=== PATIENT | male | born 1960 | race Caucasian/White ===

== ENCOUNTER 2016-08-19 13:21 | Inpatient (IN) | payer MEDICARE, OTHER ==
[~2016-08-19] VITALS: Ht 165.1 cm; Wt 63.7 kg
[2016-08-19 14:00] LABS: Basophils # (auto) 0 uL; Basophils % (auto) 0.1 % (0.0-2.0); DEFINITIVE VIEW TRANSMISSION; Eosinophils # (auto) 0 uL; Eosinophils % (auto) 0.1 % (0.0-7.0); Hematocrit 48.3 % (41.0-53.0); Hemoglobin 15.6 g/dL (13.5-17.5); Lymphocytes # (auto) 1.7 uL; Lymphocytes % (auto) 12.2 % (10.0-50.0); Mean Corpuscular Hemoglobin 34.2 pg (28.0-32.0); Mean Corpuscular Hgb Conc. 32.2 g/dL (32.0-36.0); Mean Corpuscular Volume 106.3 fL (80.0-100.0); Mean Platelet Volume 6.9 fL (7.4-10.4); Monocytes # (auto) 0.6 uL; Monocytes % (auto) 4.4 % (0.0-12.0); Neutrophils # (auto) 11.3 uL; Neutrophils % (auto) 83.2 % (37.0-80.0); Platelet Count (auto) 377 10^3/uL (140-450); White Blood Cell 13.6 10^3/uL (4.4-10.8)
[2016-08-19 14:26] LABS: Albumin 2.8 g/dL (3.4-5.0); BUN/Creatinine Ratio 11.2; Bilirubin, Total 0.5 mg/dL (0.2-1.0); Calcium 8.9 mg/dL (8.5-10.1); Potassium 3.7 mmol/L (3.5-5.1); Total Protein 7.6 g/dL (6.4-8.2)
[2016-08-19] MEDS ORDERED: SODIUM CHLORIDE 0.9% 1,000 ML IV ONE (15:08)
[2016-08-19] MEDS ORDERED: cefTRIAXone 1GM/50ML D5W 50 ML IV ONE (15:15)
[2016-08-19] MEDS ORDERED: AZITHROMYCIN 500MG/D5W 250ML 250 ML IV ONE ×2 (15:15→16:30)
[2016-08-19] MEDS ORDERED: VANCOMYCIN 1GM/250ML D5W 250 ML IV ONE (15:30)
[2016-08-19] MEDS ORDERED: ACETAMINOPHEN 500 MG TAB PO PRN (15:30)
[2016-08-19] MEDS ORDERED: VANCOMYCIN PER PHARMACY 0 MG IV SCH (15:30)
[2016-08-19] MEDS ORDERED: TEMAZEPAM 15 MG CAP PO PRN (15:30)
[2016-08-19] MEDS ORDERED: DEXTROSE (50%) 50ML SYRG IV PRN (15:30)
[2016-08-19] MEDS ORDERED: MORPHINE SULF INJ 2 MG/ML SYRINGE 1ML IV PRN ×2 (15:30)
[2016-08-19] MEDS ORDERED: LACTULOSE 20Gm/30ML SOLN PO PRN (15:30)
[2016-08-19] MEDS ORDERED: PROMETHAZINE HCL 25 MG/ML 1ML IV PRN (15:30)
[2016-08-19] MEDS ORDERED: OSELTAMIVIR 75 MG CAP PO ONE (15:30)
[2016-08-19] MEDS ORDERED: NITROGLYCERIN 0.4 MG SL TAB SL PRN (15:30)
[2016-08-19] MEDS ORDERED: LORazepam 0.5 MG TAB PO PRN (15:30)
[2016-08-19] MEDS ORDERED: ALBUTEROL SULF 2.5 MG/0.5ML(0.5%) NEB SOLN NEB PRN (15:30)
[2016-08-19] MEDS ORDERED: HYDROcodone-ACET 5/325MG TAB PO PRN (15:30)
[2016-08-19] MEDS ORDERED: PIPERACILLIN-TAZOB 3.375GM 100 ML IV ONE (15:42)
[2016-08-19] MEDS: SODIUM CHLORIDE 0.9% 1,000 ML IV SCH (15:45)
[2016-08-19] MEDS ORDERED: ENOXAPARIN SOD 40 MG/0.4 ML SYRINGE SC SCH (16:00)
[2016-08-19] MEDS: ACCU-CHEK COMFORT CURVE STRIP VI SCH ×2 (18:01→22:13)
[2016-08-19] MEDS: ALBUTEROL SULF 2.5 MG/0.5ML(0.5%) NEB SOLN NEB SCH ×2 (18:12→23:54)
[2016-08-19] MEDS: InsuLIN REG 1unit/0.01ml Soln (100units/ml) SC SCH ×2 (18:49→22:18)
[2016-08-19 19:45] VITALS: BP 114/66
[2016-08-19 19:46] VITALS: BP 114/66
[2016-08-19 19:53] VITALS: BP 118/72
[2016-08-19] MEDS ORDERED: SIMV-13 PO (20:12)
[2016-08-19] MEDS ORDERED: LEVO112T35 PO (20:13)
[2016-08-19] MEDS ORDERED: OSELTAMIVIR 75 MG CAP PO SCH (22:00)
[2016-08-19] MEDS: PIPERACILLIN-TAZOB 3.375GM 100 ML IV SCH (23:33)
[2016-08-20] MEDS ORDERED: VANCOMYCIN 1GM/250ML D5W 250 ML IV ONE (03:53)
[2016-08-20] MEDS: VANCOMYCIN 750 MG in D5W 5% 250 ML IV SCH ×2 (04:37→17:01)
[2016-08-20] MEDS: SODIUM CHLORIDE 0.9% 1,000 ML IV SCH ×2 (04:37→18:04)
[2016-08-20 05:23] VITALS: BP 101/52
[2016-08-20 05:58] LABS: Basophils # (auto) 0 uL; Basophils % (auto) 0.3 % (0.0-2.0); DEFINITIVE VIEW TRANSMISSION; Eosinophils # (auto) 0 uL; Eosinophils % (auto) 0.1 % (0.0-7.0); Hematocrit 40.9 % (41.0-53.0); Hemoglobin 13.2 g/dL (13.5-17.5); Lymphocytes # (auto) 1.5 uL; Lymphocytes % (auto) 16.6 % (10.0-50.0); Mean Corpuscular Hemoglobin 34.3 pg (28.0-32.0); Mean Corpuscular Hgb Conc. 32.4 g/dL (32.0-36.0); Mean Corpuscular Volume 105.9 fL (80.0-100.0); Mean Platelet Volume 7.3 fL (7.4-10.4); Monocytes # (auto) 0.6 uL; Monocytes % (auto) 6.3 % (0.0-12.0); Neutrophils # (auto) 6.8 uL; Neutrophils % (auto) 76.7 % (37.0-80.0); Platelet Count (auto) 312 10^3/uL (140-450); Red Cell Distribution Width 16.1 % (11.6-16.0); White Blood Cell 8.9 10^3/uL (4.4-10.8)
[2016-08-20] MEDS: ALBUTEROL SULF 2.5 MG/0.5ML(0.5%) NEB SOLN NEB SCH ×3 (06:00→18:18)
[2016-08-20] MEDS: PIPERACILLIN-TAZOB 3.375GM 100 ML IV SCH (06:22)
[2016-08-20] MEDS: ACCU-CHEK COMFORT CURVE STRIP VI SCH ×4 (06:29→21:49)
[2016-08-20] MEDS: InsuLIN REG 1unit/0.01ml Soln (100units/ml) SC SCH ×4 (06:35→21:49)
[2016-08-20 09:10] VITALS: BP 104/55
[2016-08-20] MEDS: AZITHROMYCIN 500MG/D5W 250ML 250 ML IV SCH (09:20)
[2016-08-20] MEDS ORDERED: LEVOTHYROXINE SODIUM 88 MCG TAB PO ONE (11:30)
[2016-08-20] MEDS: cefTRIAXone 1GM/50ML D5W 50 ML IV SCH (11:40)
[2016-08-20 13:00] VITALS: BP 98/52
[2016-08-20 17:00] VITALS: BP 89/58
[2016-08-20 22:00] VITALS: BP 101/57
[2016-08-21 05:03] LABS: Basophils # (auto) 0 uL; Basophils % (auto) 0.9 % (0.0-2.0); DEFINITIVE VIEW TRANSMISSION; Eosinophils # (auto) 0 uL; Eosinophils % (auto) 0.7 % (0.0-7.0); Hematocrit 40.6 % (41.0-53.0); Hemoglobin 12.8 g/dL (13.5-17.5); Lymphocytes # (auto) 1.6 uL; Lymphocytes % (auto) 30.6 % (10.0-50.0); Mean Corpuscular Hemoglobin 33.5 pg (28.0-32.0); Mean Corpuscular Hgb Conc. 31.5 g/dL (32.0-36.0); Mean Corpuscular Volume 106.2 fL (80.0-100.0); Mean Platelet Volume 7.1 fL (7.4-10.4); Monocytes # (auto) 0.5 uL; Neutrophils # (auto) 3.3 uL; Neutrophils % (auto) 58.8 % (37.0-80.0); Platelet Count (auto) 268 10^3/uL (140-450); Red Cell Distribution Width 14.6 % (11.6-16.0); White Blood Cell 5.4 10^3/uL (4.4-10.8)
[2016-08-21 05:17] LABS: BUN/Creatinine Ratio 7.4; Calcium 7.9 mg/dL (8.5-10.1); Potassium 3.9 mmol/L (3.5-5.1)
[2016-08-21 05:36] VITALS: BP 99/57
[2016-08-21] MEDS: VANCOMYCIN 750 MG in D5W 5% 250 ML IV SCH (05:46)
[2016-08-21] MEDS: ACCU-CHEK COMFORT CURVE STRIP VI SCH ×2 (06:39→11:36)
[2016-08-21] MEDS: InsuLIN REG 1unit/0.01ml Soln (100units/ml) SC SCH ×2 (06:47→12:46)
[2016-08-21] MEDS ORDERED: LEVOTHYROXINE SODIUM 88 MCG TAB PO SCH (07:00)
[2016-08-21] MEDS: ALBUTEROL SULF 2.5 MG/0.5ML(0.5%) NEB SOLN NEB SCH ×3 (07:11→11:34)
[2016-08-21] MEDS: SODIUM CHLORIDE 0.9% 1,000 ML IV SCH (07:34)
[2016-08-21 08:25] VITALS: BP 100/57
[2016-08-21] MEDS: cefTRIAXone 1GM/50ML D5W 50 ML IV SCH (08:53)
[2016-08-21] MEDS: AZITHROMYCIN 500MG/D5W 250ML 250 ML IV SCH (10:24)
[2016-08-21 12:23] VITALS: BP 89/61
[2016-08-21 14:07] VITALS: BP 89/61
[2016-08-21] MEDS ORDERED: VANCOMYCIN 1GM/250ML D5W 250 ML IV SCH (17:00)
== END 2016-08-21 15:15 | disposition home or self-care (01) | DRG 177 ==
LOC: ER 13:24 → TELE 13:25 → TELE-CENTR 19:11 → CENTRAL 08-21 10:45
PROVIDERS: ADMIT Internal Medicine; ATTEND Internal Medicine
DX: B37.1 Pulmonary candidiasis (principal); J96.00 Acute respiratory failure, unspecified whether with hypoxia or hypercapnia; E44.0 Moderate protein-calorie malnutrition; N17.9 Acute kidney failure, unspecified; E11.9 Type 2 diabetes mellitus without complications; E03.9 Hypothyroidism, unspecified; M10.9 Gout, unspecified; Q90.9 Down syndrome, unspecified; Z80.0 Family history of malignant neoplasm of digestive organs; Z80.1 Family history of malignant neoplasm of trachea, bronchus and lung; Z82.49 Family history of ischemic heart disease and other diseases of the circulatory system; Z83.3 Family history of diabetes mellitus; Z68.23 Body mass index [BMI] 23.0-23.9, adult
CPT/HCPCS: 36415; 71020; 80048; 80053; 80202; 82565; 82962; 83036; 84484; 85025; 85049; 87040; 87070; 87205; 87400; 94640; 96361; 96365; 96366; 96372; J0696; J1815; J2543; J7060

== ENCOUNTER 2018-06-16 16:10 | Inpatient (IN) | payer MEDICARE ==
[~2018-06-16] VITALS: Ht 160 cm; Wt 62.4 kg
[~2018-06-16 16:10] MED LIST: LEVO112T35 PO; SIMV-13 PO
[2018-06-16] MEDS ORDERED: IBUPROFEN 600 MG TAB PO ONE (16:30)
[2018-06-16] MEDS ORDERED: PIPERACILLIN-TAZOB 3.375GM 100 ML IV ONE (16:45)
[2018-06-16 17:15] LABS: Basophils # (auto) 0 uL; Basophils % (auto) 0.2 % (0.0-2.0); Eosinophils # (auto) 0 uL; Hemoglobin 16.2 g/dL (13.5-17.5); Lymphocytes # (auto) 0.7 uL; Monocytes # (auto) 0.4 uL; Monocytes % (auto) 4.7 % (0.0-12.0); Neutrophils # (auto) 6.7 uL; White Blood Cell 7.8 10^3/uL (4.4-10.8)
[2018-06-16 17:18] LABS: Hematocrit 47.1 % (41.0-53.0); Lymphocytes % (auto) 8.8 % (10.0-50.0); Mean Corpuscular Hemoglobin 36.4 pg (28.0-32.0); Mean Corpuscular Hgb Conc. 34.3 g/dL (32.0-36.0); Mean Corpuscular Volume 106.4 fL (80.0-100.0); Neutrophils % (auto) 86.3 % (37.0-80.0); Platelet Count (auto) 133 10^3/uL (140-450); Red Blood Cells 4.43 10^6/uL (4.5-5.90); Red Cell Distribution Width 14.5 % (11.8-14.3)
[2018-06-16 17:33] LABS: BUN/Creatinine Ratio 12.4; Potassium 3.9 mmol/L (3.5-5.1)
[2018-06-16 17:36] LABS: Bilirubin, Total 0.4 mg/dL (0.2-1.0); Total Protein 7.7 g/dL (6.4-8.2)
[2018-06-16] MEDS ORDERED: ACETAMINOPHEN 500 MG TAB PO PRN (18:15)
[2018-06-16] MEDS ORDERED: MORPHINE SULFATE 4 MG/ML SYR/VIAL IV PRN ×2 (18:15)
[2018-06-16] MEDS ORDERED: NITROGLYCERIN 0.4 MG SL TAB SL PRN (18:15)
[2018-06-16] MEDS ORDERED: PROMETHAZINE HCL 25 MG/ML 1ML IV PRN (18:15)
[2018-06-16] MEDS ORDERED: ALBUTEROL SULF 2.5 MG/0.5ML(0.5%) NEB SOLN NEB PRN (18:15)
[2018-06-16] MEDS ORDERED: AZITHROMYCIN 500MG/ 250ML 250 ML IV ONE (18:15)
[2018-06-16] MEDS ORDERED: LORazepam 0.5 MG TAB PO PRN (18:15)
[2018-06-16] MEDS ORDERED: DEXTROSE (50%) 50ML SYRG IV PRN (18:15)
[2018-06-16] MEDS ORDERED: HYDROcodone-ACET 5/325MG TAB PO PRN (18:15)
[2018-06-16] MEDS ORDERED: TEMAZEPAM 15 MG CAP PO PRN (18:15)
[2018-06-16] MEDS ORDERED: VANCOMYCIN PER PHARMACY 0 MG IV SCH (18:15)
[2018-06-16] MEDS ORDERED: cefTRIAXone 1GM/50ML D5W 50 ML IV ONE (18:15)
[2018-06-16] MEDS: SODIUM CHLORIDE 0.9% 1,000 ML IV SCH ×4 (18:31→21:42)
[2018-06-16] MEDS ORDERED: OSELTAMIVIR 30 MG CAP PO ONE (18:45)
[2018-06-16 18:54] VITALS: BP 113/70
[2018-06-16] MEDS ORDERED: VANCOMYCIN 1GM/250ML 250 ML IV ONE (21:00)
[2018-06-16] MEDS: ATORVASTATIN 20 MG TAB PO SCH (21:08)
[2018-06-16 22:00] VITALS: BP 93/52
[2018-06-16] MEDS: ACCU-CHEK COMFORT CURVE STRIP VI SCH (22:00)
[2018-06-16] MEDS: InsuLIN REG 1unit/0.01ml Soln (100units/ml) SC SCH (22:00)
[2018-06-17] MEDS: ALBUTEROL SULF 2.5 MG/0.5ML(0.5%) NEB SOLN NEB SCH ×5 (02:11→23:56)
[2018-06-17 05:27] LABS: Calcium 7.3 mg/dL (8.5-10.1); Potassium 3.8 mmol/L (3.5-5.1)
[2018-06-17] MEDS: LEVOTHYROXINE SODIUM 112 MCG TAB PO SCH (06:01)
[2018-06-17] MEDS: InsuLIN REG 1unit/0.01ml Soln (100units/ml) SC SCH ×4 (06:02→21:39)
[2018-06-17] MEDS: ACCU-CHEK COMFORT CURVE STRIP VI SCH ×4 (06:02→21:28)
[2018-06-17 06:26] VITALS: BP 103/58
[2018-06-17 09:00] VITALS: BP 92/50
[2018-06-17] MEDS: PANTOPRAZOLE 40 MG TAB PO SCH (09:50)
[2018-06-17] MEDS: cefTRIAXone 1GM/50ML D5W 50 ML IV SCH (09:50)
[2018-06-17] MEDS: ENOXAPARIN SOD 40 MG/0.4 ML SYRINGE SC SCH (09:50)
[2018-06-17] MEDS: AZITHROMYCIN 500MG/ 250ML 250 ML IV SCH (09:53)
[2018-06-17] MEDS ORDERED: OSELTAMIVIR 30 MG CAP PO SCH (10:00)
[2018-06-17 13:00] VITALS: BP 90/55
[2018-06-17 17:23] VITALS: BP 114/70
[2018-06-17] MEDS ORDERED: MAGNESIUM SULFATE 1GM/100ML 100 ML IV ONE (18:00)
[2018-06-17] MEDS: VANCOMYCIN 1GM/250ML 250 ML IV SCH (21:19)
[2018-06-17 21:29] VITALS: BP 106/58
[2018-06-17] MEDS: ATORVASTATIN 20 MG TAB PO SCH (21:39)
[2018-06-18] MEDS: SODIUM CHLORIDE 0.9% 1,000 ML IV SCH ×3 (02:59→21:44)
[2018-06-18 04:40] VITALS: BP 94/55
[2018-06-18] MEDS: ALBUTEROL SULF 2.5 MG/0.5ML(0.5%) NEB SOLN NEB SCH ×4 (05:55→23:42)
[2018-06-18] MEDS: LEVOTHYROXINE SODIUM 112 MCG TAB PO SCH (06:42)
[2018-06-18] MEDS: ACCU-CHEK COMFORT CURVE STRIP VI SCH ×4 (06:43→22:20)
[2018-06-18] MEDS: InsuLIN REG 1unit/0.01ml Soln (100units/ml) SC SCH ×4 (06:43→22:00)
[2018-06-18 09:00] VITALS: BP 97/55
[2018-06-18] MEDS: ENOXAPARIN SOD 40 MG/0.4 ML SYRINGE SC SCH (09:51)
[2018-06-18] MEDS: cefTRIAXone 1GM/50ML D5W 50 ML IV SCH (09:51)
[2018-06-18] MEDS: PANTOPRAZOLE 40 MG TAB PO SCH (09:51)
[2018-06-18] MEDS: AZITHROMYCIN 500MG/ 250ML 250 ML IV SCH (12:21)
[2018-06-18 12:44] VITALS: BP 102/60
[2018-06-18 16:00] VITALS: BP 115/72
[2018-06-18] MEDS: ATORVASTATIN 20 MG TAB PO SCH (21:45)
[2018-06-18] MEDS: VANCOMYCIN 1GM/250ML 250 ML IV SCH (21:45)
[2018-06-18 21:50] VITALS: BP 118/66
[2018-06-19] MEDS: SODIUM CHLORIDE 0.9% 1,000 ML IV SCH ×2 (02:25→10:14)
[2018-06-19 04:36] VITALS: BP 129/76
[2018-06-19 06:30] LABS: Basophils # (auto) 0 uL; Eosinophils # (auto) 0 uL; Lymphocytes # (auto) 1.1 uL; Monocytes # (auto) 0.3 uL; White Blood Cell 3.1 10^3/uL (4.4-10.8)
[2018-06-19 06:33] LABS: Basophils % (auto) 0.4 % (0.0-2.0); Eosinophils % (auto) 0.2 % (0.0-7.0); Hematocrit 40.6 % (41.0-53.0); Hemoglobin 13.7 g/dL (13.5-17.5); Lymphocytes % (auto) 33.8 % (10.0-50.0); Mean Corpuscular Hemoglobin 36.1 pg (28.0-32.0); Mean Corpuscular Hgb Conc. 33.7 g/dL (32.0-36.0); Mean Corpuscular Volume 107.2 fL (80.0-100.0); Monocytes % (auto) 8.8 % (0.0-12.0); Neutrophils # (auto) 1.8 uL; Neutrophils % (auto) 56.8 % (37.0-80.0); Nucleated Red Blood Cells % 0.3 %; Platelet Count (auto) 117 10^3/uL (140-450); Red Blood Cells 3.79 10^6/uL (4.5-5.90); Red Cell Distribution Width 14.6 % (11.8-14.3)
[2018-06-19] MEDS: ALBUTEROL SULF 2.5 MG/0.5ML(0.5%) NEB SOLN NEB SCH ×2 (06:34→11:25)
[2018-06-19 06:39] LABS: Potassium 3.9 mmol/L (3.5-5.1)
[2018-06-19 06:52] LABS: BUN/Creatinine Ratio 8.8; Calcium 7.6 mg/dL (8.5-10.1)
[2018-06-19] MEDS: LEVOTHYROXINE SODIUM 112 MCG TAB PO SCH (06:57)
[2018-06-19] MEDS: ACCU-CHEK COMFORT CURVE STRIP VI SCH ×2 (06:57→11:30)
[2018-06-19] MEDS: InsuLIN REG 1unit/0.01ml Soln (100units/ml) SC SCH ×2 (06:57→11:30)
[2018-06-19 09:00] VITALS: BP 130/71
[2018-06-19] MEDS: cefTRIAXone 1GM/50ML D5W 50 ML IV SCH (09:31)
[2018-06-19] MEDS: PANTOPRAZOLE 40 MG TAB PO SCH (09:31)
[2018-06-19] MEDS: ENOXAPARIN SOD 40 MG/0.4 ML SYRINGE SC SCH (09:31)
[2018-06-19] MEDS: AZITHROMYCIN 500MG/ 250ML 250 ML IV SCH (10:58)
[2018-06-19 13:00] VITALS: BP 142/78
== END 2018-06-19 13:08 | disposition home or self-care (01) | DRG 871 ==
LOC: ER 16:17 → TELE 16:18 → TELE-CENTR 20:11
PROVIDERS: ADMIT Internal Medicine; ATTEND Family Medicine
DX: A41.9 Sepsis, unspecified organism (principal); J18.9 Pneumonia, unspecified organism; E11.9 Type 2 diabetes mellitus without complications; M10.9 Gout, unspecified; E05.00 Thyrotoxicosis with diffuse goiter without thyrotoxic crisis or storm; E86.0 Dehydration; D69.6 Thrombocytopenia, unspecified; E78.00 Pure hypercholesterolemia, unspecified; Z80.0 Family history of malignant neoplasm of digestive organs; Z82.49 Family history of ischemic heart disease and other diseases of the circulatory system; Z80.1 Family history of malignant neoplasm of trachea, bronchus and lung; Z83.3 Family history of diabetes mellitus; Z92.3 Personal history of irradiation; Q90.9 Down syndrome, unspecified
CPT/HCPCS: 36415; 71045; 71046; 80048; 80053; 82962; 83036; 83605; 85025; 85652; 87040; 87070; 87205; 87804; 93306; 94640; 96365; 96375; A6257; G0378; G9035; J0696; J1815; J2543

== ENCOUNTER 2018-08-04 07:46 | Emergency (ER) | payer MEDICARE ==
[~2018-08-04] VITALS: Ht 160 cm; Wt 58.5 kg
[2018-08-04 07:59] VITALS: BP 141/59
[2018-08-04] MEDS ORDERED: methylPREDNISolone SOD SUCC 125 MG/2 ML VL IM ONE (09:00)
[2018-08-04] MEDS ORDERED: cefTRIAXone SOD 1,000 MG VL IM ONE (09:00)
[2018-08-04] MEDS ORDERED: LEVOFLOXACIN 500 MG TAB PO ONE (09:00)
[2018-08-04 09:02] LABS: Basophils # (auto) 0 uL; Eosinophils # (auto) 0 uL; Lymphocytes # (auto) 0.8 uL
[2018-08-04 09:03] LABS: Basophils % (auto) 0.2 % (0.0-2.0); Hematocrit 47.6 % (41.0-53.0); Hemoglobin 15.6 g/dL (13.5-17.5); Lymphocytes % (auto) 7.1 % (10.0-50.0); Mean Corpuscular Hemoglobin 35.1 pg (28.0-32.0); Mean Corpuscular Hgb Conc. 32.8 g/dL (32.0-36.0); Monocytes # (auto) 0.5 uL; Neutrophils % (auto) 88.7 % (37.0-80.0); Platelet Count (auto) 174 10^3/uL (140-450); Red Blood Cells 4.45 10^6/uL (4.5-5.90); Red Cell Distribution Width 16.1 % (11.8-14.3); White Blood Cell 11.3 10^3/uL (4.4-10.8)
[2018-08-04 09:23] LABS: Albumin 2.7 g/dL (3.4-5.0); BUN/Creatinine Ratio 9.5; Calcium 8.1 mg/dL (8.5-10.1)
[2018-08-04 09:27] LABS: Total Protein 7.6 g/dL (6.4-8.2)
== END 2018-08-04 09:43 | disposition home or self-care (01) ==
LOC: ER 07:46
DX: J18.9 Pneumonia, unspecified organism (principal); E11.9 Type 2 diabetes mellitus without complications
CPT/HCPCS: 36415; 71046; 80053; 85025; 87040; 96372; 99284; J0696; J2930

== ENCOUNTER 2021-05-31 07:32 | Emergency (ER) | payer MEDICARE ==
[~2021-05-31] VITALS: Ht 162.6 cm; Wt 49.9 kg
[~2021-05-31 07:32] MED LIST changes: +ALBUAER3 IN; +ASCO10003 PO; +CHOL1CAP47 PO; +DEX4T PO; +ERY05OO OP; +LEV112T PO; -LEVO112T35 PO; +PANT40TA2 PO; +POLYSOL15 OP; +PRED1SUS4 OP; -SIMV-13 PO; +ZINC220T6 PO
[2021-05-31 08:05] VITALS: BP 97/55
[2021-05-31 08:44] LABS: Basophils # (auto) 0.1 10 ^3/uL (0-0.2); Basophils % (auto) 0.6 % (0.0-2.0); Eosinophils # (auto) 0 10 ^3/uL (0-0.8); Eosinophils % (auto) 0.3 % (0.0-7.0); Mean Corpuscular Volume 106.1 fL (80.0-100.0); Neutrophils # (auto) 8.1 10 ^3/uL (1.6-8.6)
[2021-05-31 08:45] LABS: Hematocrit 40.2 % (41.0-53.0); Hemoglobin 13.5 g/dL (13.5-17.5); Lymphocytes # (auto) 1.9 10 ^3/uL (0.4-5.4); Mean Corpuscular Hemoglobin 35.6 pg (28.0-32.0); Mean Corpuscular Hgb Conc. 33.5 g/dL (32.0-36.0); Monocytes # (auto) 0.7 10 ^3/uL (0-1.3); Monocytes % (auto) 6.2 % (0.0-12.0); Neutrophils % (auto) 74.9 % (37.0-80.0); Red Blood Cells 3.79 10^6/uL (4.5-5.90); White Blood Cell 10.7 10^3/uL (4.4-10.8)
[2021-05-31 09:06] LABS: Albumin 2.1 g/dL (3.4-5.0); Calcium 8.5 mg/dL (8.5-10.1); Potassium 4.1 mmol/L (3.5-5.1)
[2021-05-31 09:09] LABS: BUN/Creatinine Ratio 9.9; Bilirubin, Total 0.6 mg/dL (0.2-1.0); Total Protein 7.6 g/dL (6.4-8.2)
== END 2021-05-31 10:02 | disposition home or self-care (01) ==
LOC: ER 07:32
DX: J18.9 Pneumonia, unspecified organism (principal); E11.9 Type 2 diabetes mellitus without complications; Z20.822 Contact with and (suspected) exposure to COVID-19
CPT/HCPCS: 36415; 71045; 80053; 85025; 87426

== ENCOUNTER 2021-07-11 06:35 | Emergency (ER) | payer MEDICARE ==
[~2021-07-11] VITALS: Ht 165.1 cm; Wt 49.9 kg
[2021-07-11] MEDS ORDERED: AZITHROMYCIN 500MG/ 250ML 250 ML IV ONE (07:30)
[2021-07-11] MEDS ORDERED: cefTRIAXone 1GM/50ML D5W 50 ML IV ONE (07:30)
[2021-07-11] MEDS ORDERED: SODIUM CHLORIDE 0.9% 1,000 ML IV ONE (07:45)
[2021-07-11] MEDS ORDERED: SODIUM CHLORIDE 0.9% 500 ML IV ONE (07:45)
[2021-07-11 08:22] LABS: Basophils # (auto) 0 10 ^3/uL (0-0.2); Eosinophils # (auto) 0 10 ^3/uL (0-0.8)
[2021-07-11 08:28] LABS: Basophils % (auto) 0.3 % (0.0-2.0); Eosinophils % (auto) 0.1 % (0.0-7.0); Hematocrit 44.2 % (41.0-53.0); Lymphocytes # (auto) 1.5 10 ^3/uL (0.4-5.4); Mean Corpuscular Hemoglobin 36.5 pg (28.0-32.0); Mean Corpuscular Volume 107.3 fL (80.0-100.0); Monocytes # (auto) 0.7 10 ^3/uL (0-1.3); Monocytes % (auto) 7.1 % (0.0-12.0); Neutrophils # (auto) 7.3 10 ^3/uL (1.6-8.6); Neutrophils % (auto) 76.5 % (37.0-80.0); Nucleated Red Blood Cells % 0.1 %; Red Blood Cells 4.12 10^6/uL (4.5-5.90); Red Cell Distribution Width 15.7 % (11.8-14.3); White Blood Cell 9.6 10^3/uL (4.4-10.8)
[2021-07-11 08:34] LABS: Albumin 2.8 g/dL (3.4-5.0); Calcium 8.7 mg/dL (8.5-10.1)
[2021-07-11 08:42] LABS: BUN/Creatinine Ratio 11.1; Bilirubin, Total 0.7 mg/dL (0.2-1.0); CRP High Sensitivity 16.5 mg/dL (< 0.3); Total Protein 8.4 g/dL (6.4-8.2)
[2021-07-11] MEDS ORDERED: AMOXICILLIN/CLAVUL 875 MG TAB PO SCH (10:00)
[2021-07-11 13:35] VITALS: BP 115/52
== END 2021-07-11 13:43 | disposition home or self-care (01) ==
LOC: ER 06:35
DX: J18.9 Pneumonia, unspecified organism (principal); Z20.822 Contact with and (suspected) exposure to COVID-19
CPT/HCPCS: 36415; 71046; 80053; 82728; 83605; 83615; 84443; 85025; 86141; 87040; 87426; 96365; 96366; 96367; 99285; J0456; J0696; J7030

== ENCOUNTER 2021-08-09 06:10 | Inpatient (IN) | payer MEDICARE ==
[~2021-08-09] VITALS: Ht 165.1 cm; Wt 51.8 kg
[2021-08-09] MEDS ORDERED: levoFLOXacin 500MG 100 ML IV ONE (07:00)
[2021-08-09 07:35] LABS: Basophils # (auto) 0 10 ^3/uL (0-0.2); Basophils % (auto) 0.2 % (0.0-2.0); Eosinophils # (auto) 0 10 ^3/uL (0-0.8); Monocytes # (auto) 0.5 10 ^3/uL (0-1.3)
[2021-08-09 07:40] LABS: Hematocrit 43.2 % (41.0-53.0); Hemoglobin 14.5 g/dL (13.5-17.5); Lymphocytes # (auto) 1.2 10 ^3/uL (0.4-5.4); Lymphocytes % (auto) 9.1 % (10.0-50.0); Mean Corpuscular Hemoglobin 35.1 pg (28.0-32.0); Mean Corpuscular Hgb Conc. 33.5 g/dL (32.0-36.0); Mean Corpuscular Volume 104.8 fL (80.0-100.0); Monocytes % (auto) 3.8 % (0.0-12.0); Neutrophils # (auto) 11.4 10 ^3/uL (1.6-8.6); Neutrophils % (auto) 86.9 % (37.0-80.0); Red Blood Cells 4.13 10^6/uL (4.5-5.90); Red Cell Distribution Width 16.2 % (11.8-14.3); White Blood Cell 13.1 10^3/uL (4.4-10.8)
[2021-08-09 07:43] LABS: Albumin 2.6 g/dL (3.4-5.0); Calcium 8.5 mg/dL (8.5-10.1); Potassium 4.3 mmol/L (3.5-5.1)
[2021-08-09 07:52] LABS: BUN/Creatinine Ratio 10.8; Bilirubin, Total 0.6 mg/dL (0.2-1.0); CRP High Sensitivity 17.7 mg/dL (< 0.3)
[2021-08-09] MEDS ORDERED: NITROGLYCERIN 0.4 MG SL TAB SL PRN (10:00)
[2021-08-09] MEDS ORDERED: MORPHINE SULFATE INJECTION 2 MG/ML SYRG IV PRN (10:00)
[2021-08-09] MEDS ORDERED: traMADol HCL 50 MG TAB PO PRN (10:30)
[2021-08-09] MEDS ORDERED: DEXTROSE (50%) 50ML SYRG IV PRN (10:30)
[2021-08-09] MEDS ORDERED: ALBUTEROL SULF HFA 90MCG INH 200DOSE IN PRN (10:30)
[2021-08-09] MEDS ORDERED: IOHEXOL 350 MG/ML 100ML IJ ONE (10:31)
[2021-08-09] MEDS: InsuLIN REG 1unit/0.01ml Soln (100units/ml) SC SCH ×3 (11:30→22:28)
[2021-08-09] MEDS: ACCU-CHEK COMFORT CURVE STRIP VI SCH ×3 (11:31→22:19)
[2021-08-09] MEDS: SODIUM CHLORIDE 0.9% 1,000 ML IV SCH (11:32)
[2021-08-09 22:00] VITALS: BP 120/55
[2021-08-09] MEDS ORDERED: BUDESONIDE (INHALATION) 180 MCG IH IN SCH (22:00)
[2021-08-09] MEDS: ACETAMINOPHEN 500 MG TAB PO PRN (22:18)
[2021-08-09 22:30] VITALS: BP 120/55
[2021-08-09] MEDS ORDERED: LEVO88TA4 PO (22:58)
[2021-08-10] MEDS: SODIUM CHLORIDE 0.9% 1,000 ML IV SCH ×2 (01:54→15:47)
[2021-08-10 05:00] VITALS: BP 86/50
[2021-08-10] MEDS: InsuLIN REG 1unit/0.01ml Soln (100units/ml) SC SCH ×4 (06:06→20:40)
[2021-08-10] MEDS: ACCU-CHEK COMFORT CURVE STRIP VI SCH ×4 (06:07→20:38)
[2021-08-10 06:08] VITALS: BP 77/44
[2021-08-10 06:55] LABS: Basophils # (auto) 0 10 ^3/uL (0-0.2); Basophils % (auto) 0.3 % (0.0-2.0); Eosinophils # (auto) 0 10 ^3/uL (0-0.8); Hemoglobin 12.3 g/dL (13.5-17.5); Lymphocytes # (auto) 1.1 10 ^3/uL (0.4-5.4); Lymphocytes % (auto) 7.1 % (10.0-50.0)
[2021-08-10 06:56] LABS: Hematocrit 36.9 % (41.0-53.0); Mean Corpuscular Hemoglobin 34.9 pg (28.0-32.0); Mean Corpuscular Hgb Conc. 33.2 g/dL (32.0-36.0); Monocytes # (auto) 0.8 10 ^3/uL (0-1.3); Monocytes % (auto) 4.7 % (0.0-12.0); Neutrophils # (auto) 14.1 10 ^3/uL (1.6-8.6); Neutrophils % (auto) 87.9 % (37.0-80.0); Nucleated Red Blood Cells % 0.1 %; Red Blood Cells 3.51 10^6/uL (4.5-5.90); Red Cell Distribution Width 16.4 % (11.8-14.3)
[2021-08-10 07:25] LABS: Albumin 2.1 g/dL (3.4-5.0); Calcium 7.8 mg/dL (8.5-10.1); Potassium 4.1 mmol/L (3.5-5.1)
[2021-08-10 07:28] LABS: BUN/Creatinine Ratio 12.2; Bilirubin, Total 0.8 mg/dL (0.2-1.0); Total Protein 6.2 g/dL (6.4-8.2)
[2021-08-10 09:04] VITALS: BP 74/45
[2021-08-10] MEDS: cefTRIAXone 1GM/50ML D5W 50 ML IV SCH (09:09)
[2021-08-10] MEDS: AZITHROMYCIN 500MG/ 250ML 250 ML IV SCH (09:54)
[2021-08-10] MEDS ORDERED: ENOXAPARIN SOD 40 MG/0.4 ML SYRINGE SC SCH (10:00)
[2021-08-10] MEDS ORDERED: ZINC SULFATE 220mg CAP or TAB PO SCH (10:00)
[2021-08-10] MEDS ORDERED: CHOLECALCIFEROL (VITD3) 2,000 UNIT CAP/TAB PO SCH (10:00)
[2021-08-10] MEDS ORDERED: DexAMETHasone SOD PHOS 10MG/1ML VIAL INJ IV SCH (10:00)
[2021-08-10] MEDS ORDERED: ASCORBIC ACID 1,000 MG TAB PO SCH (10:00)
[2021-08-10 13:00] VITALS: BP 77/49
[2021-08-10 16:49] VITALS: BP 98/47
[2021-08-10 22:00] VITALS: BP 84/45
[2021-08-11] MEDS: SODIUM CHLORIDE 0.9% 1,000 ML IV SCH ×3 (02:33→18:24)
[2021-08-11 05:00] VITALS: BP 85/41
[2021-08-11 05:00] LABS: Basophils # (auto) 0 10 ^3/uL (0-0.2); Eosinophils # (auto) 0 10 ^3/uL (0-0.8); Monocytes # (auto) 0.5 10 ^3/uL (0-1.3); Neutrophils # (auto) 9.7 10 ^3/uL (1.6-8.6)
[2021-08-11 05:03] LABS: Basophils % (auto) 0.2 % (0.0-2.0); Eosinophils % (auto) 0.2 % (0.0-7.0); Hematocrit 33.2 % (41.0-53.0); Hemoglobin 11.5 g/dL (13.5-17.5); Lymphocytes # (auto) 1.2 10 ^3/uL (0.4-5.4); Lymphocytes % (auto) 10.6 % (10.0-50.0); Mean Corpuscular Hemoglobin 35.9 pg (28.0-32.0); Mean Corpuscular Hgb Conc. 34.5 g/dL (32.0-36.0); Monocytes % (auto) 4.5 % (0.0-12.0); Neutrophils % (auto) 84.5 % (37.0-80.0); Red Blood Cells 3.19 10^6/uL (4.5-5.90); White Blood Cell 11.5 10^3/uL (4.4-10.8)
[2021-08-11 05:20] LABS: BUN/Creatinine Ratio 18.1; Calcium 8.1 mg/dL (8.5-10.1)
[2021-08-11 06:23] VITALS: BP 90/46
[2021-08-11] MEDS: InsuLIN REG 1unit/0.01ml Soln (100units/ml) SC SCH ×4 (06:51→21:03)
[2021-08-11] MEDS: ACCU-CHEK COMFORT CURVE STRIP VI SCH ×4 (06:51→21:04)
[2021-08-11] MEDS: cefTRIAXone 1GM/50ML D5W 50 ML IV SCH (08:51)
[2021-08-11 09:09] VITALS: BP 75/51
[2021-08-11] MEDS: AZITHROMYCIN 500MG/ 250ML 250 ML IV SCH (09:47)
[2021-08-11 12:09] VITALS: BP 86/59
[2021-08-11 16:55] VITALS: BP 94/56
[2021-08-11] MEDS: ACETAMINOPHEN 500 MG TAB PO PRN (20:02)
[2021-08-11 22:00] VITALS: BP 99/61
[2021-08-12 05:00] VITALS: BP 91/57
[2021-08-12] MEDS: InsuLIN REG 1unit/0.01ml Soln (100units/ml) SC SCH ×4 (06:20→22:31)
[2021-08-12] MEDS: ACCU-CHEK COMFORT CURVE STRIP VI SCH ×4 (06:20→22:30)
[2021-08-12] MEDS: SODIUM CHLORIDE 0.9% 1,000 ML IV SCH (06:20)
[2021-08-12 09:00] VITALS: BP 98/58
[2021-08-12] MEDS: cefTRIAXone 1GM/50ML D5W 50 ML IV SCH (09:25)
[2021-08-12] MEDS: ACETYLCYSTEINE 10 %(100MG/ML) SOL 4ML NEB SCH ×4 (10:00→22:48)
[2021-08-12] MEDS: AZITHROMYCIN 500MG/ 250ML 250 ML IV SCH (10:08)
[2021-08-12 12:04] VITALS: BP 93/60
[2021-08-12] MEDS ORDERED: ALBUTEROL SULF 2.5 MG/0.5ML(0.5%) NEB SOLN ONE (14:14)
[2021-08-12] MEDS ORDERED: ALBUTEROL SULF 2.5 MG/0.5ML(0.5%) NEB SOLN NEB PRN (14:15)
[2021-08-12 16:47] VITALS: BP 96/64
[2021-08-12] MEDS: ALBUTEROL SULF 2.5 MG/0.5ML(0.5%) NEB SOLN NEB SCH ×2 (18:05→22:48)
[2021-08-12 22:00] VITALS: BP 100/59
[2021-08-13] MEDS: ALBUTEROL SULF 2.5 MG/0.5ML(0.5%) NEB SOLN NEB SCH ×3 (02:32→10:54)
[2021-08-13] MEDS: ACETYLCYSTEINE 10 %(100MG/ML) SOL 4ML NEB SCH ×3 (02:32→10:55)
[2021-08-13 05:00] VITALS: BP 96/58
[2021-08-13] MEDS: ACCU-CHEK COMFORT CURVE STRIP VI SCH ×2 (06:21→11:30)
[2021-08-13] MEDS: InsuLIN REG 1unit/0.01ml Soln (100units/ml) SC SCH ×2 (06:22→11:30)
[2021-08-13 08:01] LABS: Basophils # (auto) 0 10 ^3/uL (0-0.2); Eosinophils # (auto) 0 10 ^3/uL (0-0.8); Eosinophils % (auto) 0.7 % (0.0-7.0); Lymphocytes # (auto) 1.4 10 ^3/uL (0.4-5.4); Monocytes # (auto) 0.4 10 ^3/uL (0-1.3); Neutrophils # (auto) 3.1 10 ^3/uL (1.6-8.6); Nucleated Red Blood Cells % 0.1 %
[2021-08-13 08:05] LABS: Basophils % (auto) 0.7 % (0.0-2.0); Hematocrit 35.3 % (41.0-53.0); Hemoglobin 12.1 g/dL (13.5-17.5); Lymphocytes % (auto) 28.2 % (10.0-50.0); Mean Corpuscular Hemoglobin 35.6 pg (28.0-32.0); Mean Corpuscular Hgb Conc. 34.4 g/dL (32.0-36.0); Mean Corpuscular Volume 103.6 fL (80.0-100.0); Monocytes % (auto) 7.9 % (0.0-12.0); Neutrophils % (auto) 62.5 % (37.0-80.0); Red Blood Cells 3.41 10^6/uL (4.5-5.90); Red Cell Distribution Width 16.2 % (11.8-14.3)
[2021-08-13 08:25] LABS: BUN/Creatinine Ratio 16.2
[2021-08-13 08:29] VITALS: BP 101/61
[2021-08-13] MEDS: cefTRIAXone 1GM/50ML D5W 50 ML IV SCH (08:59)
[2021-08-13] MEDS: AZITHROMYCIN 500MG/ 250ML 250 ML IV SCH (09:00)
[2021-08-13] MEDS ORDERED: AZIT500T66 PO (09:35)
[2021-08-13] MEDS ORDERED: AMOX500T86 PO (09:35)
[2021-08-13 10:06] VITALS: BP 101/61
== END 2021-08-13 11:50 | disposition home or self-care (01) | DRG 871 ==
LOC: ER 06:10 → TELE 09:51 → TELE-CENTR 21:30
PROVIDERS: ADMIT Internal Medicine; ATTEND Internal Medicine Pulmonary Disease
DX: A41.9 Sepsis, unspecified organism (principal); J18.9 Pneumonia, unspecified organism; J96.01 Acute respiratory failure with hypoxia; J44.0 Chronic obstructive pulmonary disease with (acute) lower respiratory infection; J98.09 Other diseases of bronchus, not elsewhere classified; Q90.9 Down syndrome, unspecified; E78.5 Hyperlipidemia, unspecified; I10 Essential (primary) hypertension; M10.9 Gout, unspecified; E11.65 Type 2 diabetes mellitus with hyperglycemia; Z20.822 Contact with and (suspected) exposure to COVID-19; Z82.49 Family history of ischemic heart disease and other diseases of the circulatory system; Z82.5 Family history of asthma and other chronic lower respiratory diseases; Z92.3 Personal history of irradiation; Z80.1 Family history of malignant neoplasm of trachea, bronchus and lung
CPT/HCPCS: 36415; 36600; 71045; 71275; 80048; 80053; 82728; 82805; 82962; 83036; 83605; 83880; 84484; 85025; 85379; 86141; 87040; 87426; 87804; 93005; 94640; G0378; J0696; J1815; J1956

== ENCOUNTER 2021-08-20 07:17 | Inpatient (IN) | payer MEDICARE ==
[~2021-08-20] VITALS: Ht 165.1 cm; Wt 51.0 kg
[~2021-08-20 07:17] MED LIST changes: +AMOX500T86 PO; +AZIT500T66 PO; -DEX4T PO; -LEV112T PO; +LEVO88TA4 PO; -PANT40TA2 PO
[2021-08-20 10:22] LABS: Basophils # (auto) 0.2 10 ^3/uL (0-0.2); Eosinophils # (auto) 0 10 ^3/uL (0-0.8); Hemoglobin 13.4 g/dL (13.5-17.5); Lymphocytes # (auto) 1.2 10 ^3/uL (0.4-5.4); Nucleated Red Blood Cells % 0.1 %
[2021-08-20 10:35] LABS: Basophils % (auto) 4.2 % (0.0-2.0); Hematocrit 39.9 % (41.0-53.0); Lymphocytes % (auto) 21.2 % (10.0-50.0); Mean Corpuscular Hemoglobin 34.8 pg (28.0-32.0); Mean Corpuscular Hgb Conc. 33.6 g/dL (32.0-36.0); Mean Corpuscular Volume 103.4 fL (80.0-100.0); Monocytes # (auto) 0.4 10 ^3/uL (0-1.3); Monocytes % (auto) 6.6 % (0.0-12.0); Neutrophils # (auto) 3.9 10 ^3/uL (1.6-8.6); Red Blood Cells 3.86 10^6/uL (4.5-5.90); Red Cell Distribution Width 16.6 % (11.8-14.3); White Blood Cell 5.8 10^3/uL (4.4-10.8)
[2021-08-20 10:47] LABS: Calcium 8.1 mg/dL (8.5-10.1); Potassium 4.3 mmol/L (3.5-5.1)
[2021-08-20 10:56] LABS: Albumin 2.2 g/dL (3.4-5.0); BUN/Creatinine Ratio 11.2; Bilirubin, Total 0.2 mg/dL (0.2-1.0); Magnesium 3.2 mg/dL (1.6-2.6); Total Protein 7.3 g/dL (6.4-8.2)
[2021-08-20] MEDS ORDERED: cefTRIAXone 1GM/50ML D5W 50 ML IV ONE (12:15)
[2021-08-20] MEDS ORDERED: AZITHROMYCIN 500MG/ 250ML 250 ML IV ONE (12:15)
[2021-08-20] MEDS ORDERED: NITROGLYCERIN 0.4 MG SL TAB SL PRN ×2 (15:00→17:00)
[2021-08-20] MEDS ORDERED: MORPHINE SULFATE INJECTION 2 MG/ML SYRG IV PRN ×3 (15:00→17:00)
[2021-08-20] MEDS ORDERED: DEXTROSE (50%) 50ML SYRG IV PRN (16:45)
[2021-08-20] MEDS ORDERED: IPRATROPIUM BROM 0.5 MG/2.5ML INH SOL NEB ONE (16:45)
[2021-08-20] MEDS ORDERED: VANCOMYCIN PER PHARMACY 0 MG IV SCH (16:45)
[2021-08-20] MEDS ORDERED: PIPERACILLIN-TAZOB 3.375GM 100 ML IV ONE (16:45)
[2021-08-20] MEDS ORDERED: ACETAMINOPHEN 325 MG TAB PO PRN (17:00)
[2021-08-20] MEDS ORDERED: LORazepam 0.5 MG TAB PO PRN (17:00)
[2021-08-20] MEDS ORDERED: HYDROcodone-ACET 5/325MG TAB PO PRN (17:00)
[2021-08-20] MEDS ORDERED: ALUM & MAG HYDROX-SIMETH LIQ(MAALOX) 30 ML PO PRN (17:00)
[2021-08-20] MEDS: InsuLIN REG 1unit/0.01ml Soln (100units/ml) SC SCH ×2 (17:00→21:52)
[2021-08-20] MEDS ORDERED: ONDANSETRON HCL 4 MG/2 ML VIAL IV PRN (17:00)
[2021-08-20] MEDS: ACCU-CHEK COMFORT CURVE STRIP VI SCH ×2 (17:42→21:52)
[2021-08-20] MEDS: SODIUM CHLORIDE 0.9% 1,000 ML IV SCH (17:54)
[2021-08-20 19:15] LABS: Urine Bacteria NONE SEEN /hpf (None Seen); Urine Blood Negative /uL (Negative); Urine Mucus FEW (None Seen); Urine Specific Gravity 1.026 (1.001-1.035); Urine WBC <1 /hpf (0 - 3)
[2021-08-20 19:29] LABS: Amphetamine Screen, Urine NEGATIVE (NEGATIVE); Barbiturate Scree,Urine NEGATIVE (NEGATIVE); Benzodiazephine Screen, Urine NEGATIVE (NEGATIVE); Cannabinoid Screen, Urine NEGATIVE (NEGATIVE); Cocaine Screen, Urine NEGATIVE (NEGATIVE); Opiate Scree,Urine NEGATIVE (NEGATIVE); Phencyclidine Screen, Urine NEGATIVE (NEGATIVE)
[2021-08-20] MEDS: ACETYLCYSTEINE 20%(200MG/ML) SOL 4ML NEB SCH (19:29)
[2021-08-20] MEDS: ALBUTEROL SULF 2.5 MG/0.5ML(0.5%) NEB SOLN NEB PRN (19:29)
[2021-08-20] MEDS ORDERED: VANCOMYCIN 750mg/250ml 250 ML IV SCH (20:00)
[2021-08-20 20:58] LABS: Cholesterol 125 mg/dL (< 200)
[2021-08-20 21:01] LABS: HDL Cholesterol 38 mg/dL (40-59); LDL Cholesterol 73 mg/dL (< 100); Triglycerides 100 mg/dL (< 150)
[2021-08-20] MEDS: ATORVASTATIN 20 MG TAB PO SCH (21:52)
[2021-08-20 22:00] VITALS: BP 86/55
[2021-08-20] MEDS ORDERED: IPRATROPIUM BROM 0.5 MG/2.5ML INH SOL NEB SCH (22:00)
[2021-08-21] MEDS: PIPERACILLIN-TAZOB 3.375GM 100 ML IV SCH ×2 (00:14→06:15)
[2021-08-21] MEDS: ALBUTEROL SULF 2.5 MG/0.5ML(0.5%) NEB SOLN NEB PRN ×5 (00:20→23:55)
[2021-08-21] MEDS: ACETYLCYSTEINE 20%(200MG/ML) SOL 4ML NEB SCH ×3 (00:20→12:00)
[2021-08-21 05:00] VITALS: BP 85/49
[2021-08-21 05:05] LABS: Basophils # (auto) 0 10 ^3/uL (0-0.2); Basophils % (auto) 0.2 % (0.0-2.0); Eosinophils # (auto) 0 10 ^3/uL (0-0.8); Hematocrit 36.9 % (41.0-53.0); Hemoglobin 12.5 g/dL (13.5-17.5); Lymphocytes # (auto) 1.6 10 ^3/uL (0.4-5.4); Lymphocytes % (auto) 18.8 % (10.0-50.0); Mean Corpuscular Hgb Conc. 33.9 g/dL (32.0-36.0); Mean Corpuscular Volume 103.2 fL (80.0-100.0); Monocytes # (auto) 0.4 10 ^3/uL (0-1.3); Monocytes % (auto) 4.3 % (0.0-12.0); Neutrophils # (auto) 6.6 10 ^3/uL (1.6-8.6); Neutrophils % (auto) 76.7 % (37.0-80.0); Nucleated Red Blood Cells % 0.1 %; Red Blood Cells 3.58 10^6/uL (4.5-5.90); White Blood Cell 8.7 10^3/uL (4.4-10.8)
[2021-08-21 05:29] LABS: Albumin 1.9 g/dL (3.4-5.0); Calcium 7.6 mg/dL (8.5-10.1); Magnesium 2.8 mg/dL (1.6-2.6); Potassium 3.9 mmol/L (3.5-5.1)
[2021-08-21 05:30] LABS: INR 1.22 (0.9-1.15); Partial Thromboplastin Time 32.1 sec (23.6-33.0)
[2021-08-21 05:36] LABS: BUN/Creatinine Ratio 11.9; Bilirubin, Total 0.3 mg/dL (0.2-1.0); Total Protein 6.7 g/dL (6.4-8.2)
[2021-08-21 05:40] LABS: Folate (Folic Acid) 14.64 ng/mL (5.38-24)
[2021-08-21] MEDS: LEVOTHYROXINE SODIUM 88 MCG TAB PO SCH (06:14)
[2021-08-21] MEDS: ACCU-CHEK COMFORT CURVE STRIP VI SCH ×4 (06:15→22:35)
[2021-08-21] MEDS: InsuLIN REG 1unit/0.01ml Soln (100units/ml) SC SCH ×4 (06:15→22:00)
[2021-08-21 09:00] VITALS: BP 77/51
[2021-08-21] MEDS: DOCUSATE SOD 100 MG CAP PO PRN (09:38)
[2021-08-21] MEDS: ENOXAPARIN SOD 40 MG/0.4 ML SYRINGE SC SCH (09:39)
[2021-08-21] MEDS: ASPirin 81 mg TAB PO SCH (09:39)
[2021-08-21] MEDS: BENAZEPRIL HCL 10 MG TAB PO SCH (09:44)
[2021-08-21] MEDS: SODIUM CHLORIDE 0.9% 1,000 ML IV SCH (09:46)
[2021-08-21] MEDS ORDERED: MEROPENEM 1GM IVPB 100 ML IV ONE (11:00)
[2021-08-21] MEDS: LINEZOLID 600MG/300ML 300 ML IV SCH ×2 (11:31→22:34)
[2021-08-21] MEDS: ACETYLCYSTEINE 10 %(100MG/ML) SOL 4ML NEB SCH ×3 (12:42→23:55)
[2021-08-21 13:00] VITALS: BP 83/54
[2021-08-21 17:00] VITALS: BP 88/53
[2021-08-21] MEDS: MEROPENEM 1GM IVPB 100 ML IV SCH (20:54)
[2021-08-21] MEDS: ATORVASTATIN 20 MG TAB PO SCH (22:35)
[2021-08-22] MEDS: SODIUM CHLORIDE 0.9% 1,000 ML IV SCH ×2 (02:05→18:45)
[2021-08-22] MEDS: MEROPENEM 1GM IVPB 100 ML IV SCH ×3 (04:04→20:33)
[2021-08-22 05:00] VITALS: BP 87/48
[2021-08-22] MEDS: ALBUTEROL SULF 2.5 MG/0.5ML(0.5%) NEB SOLN NEB PRN ×3 (06:14→22:44)
[2021-08-22] MEDS: ACETYLCYSTEINE 10 %(100MG/ML) SOL 4ML NEB SCH ×3 (06:14→22:45)
[2021-08-22] MEDS: InsuLIN REG 1unit/0.01ml Soln (100units/ml) SC SCH ×4 (07:00→22:20)
[2021-08-22] MEDS: ACCU-CHEK COMFORT CURVE STRIP VI SCH ×4 (07:03→22:30)
[2021-08-22] MEDS: LEVOTHYROXINE SODIUM 88 MCG TAB PO SCH (07:03)
[2021-08-22 09:00] VITALS: BP 88/41
[2021-08-22] MEDS: BENAZEPRIL HCL 10 MG TAB PO SCH (10:00)
[2021-08-22] MEDS: ASPirin 81 mg TAB PO SCH (11:05)
[2021-08-22] MEDS: DOCUSATE SOD 100 MG CAP PO PRN (11:06)
[2021-08-22] MEDS: LINEZOLID 600MG/300ML 300 ML IV SCH ×2 (11:06→22:18)
[2021-08-22] MEDS: ENOXAPARIN SOD 40 MG/0.4 ML SYRINGE SC SCH (11:06)
[2021-08-22 13:00] VITALS: BP 92/60
[2021-08-22 17:00] VITALS: BP 104/68
[2021-08-22 22:00] VITALS: BP 108/62
[2021-08-22] MEDS: ATORVASTATIN 20 MG TAB PO SCH (22:19)
[2021-08-23] MEDS: ACETYLCYSTEINE 10 %(100MG/ML) SOL 4ML NEB SCH ×4 (04:03→18:21)
[2021-08-23] MEDS: ALBUTEROL SULF 2.5 MG/0.5ML(0.5%) NEB SOLN NEB PRN ×4 (04:03→18:21)
[2021-08-23 05:00] VITALS: BP 98/63
[2021-08-23] MEDS: ACCU-CHEK COMFORT CURVE STRIP VI SCH ×4 (06:52→22:47)
[2021-08-23] MEDS: InsuLIN REG 1unit/0.01ml Soln (100units/ml) SC SCH ×4 (06:54→22:00)
[2021-08-23] MEDS: LEVOTHYROXINE SODIUM 88 MCG TAB PO SCH (06:57)
[2021-08-23] MEDS: MEROPENEM 1GM IVPB 100 ML IV SCH ×3 (06:58→20:44)
[2021-08-23 09:00] VITALS: BP 86/57
[2021-08-23] MEDS: BENAZEPRIL HCL 10 MG TAB PO SCH (10:00)
[2021-08-23] MEDS: LINEZOLID 600MG/300ML 300 ML IV SCH ×2 (10:19→22:47)
[2021-08-23] MEDS: SODIUM CHLORIDE 0.9% 1,000 ML IV SCH (11:25)
[2021-08-23] MEDS: ASPirin 81 mg TAB PO SCH (12:11)
[2021-08-23] MEDS: ENOXAPARIN SOD 40 MG/0.4 ML SYRINGE SC SCH (12:12)
[2021-08-23 17:00] VITALS: BP 95/71
[2021-08-23 22:00] VITALS: BP 95/53
[2021-08-23] MEDS: ATORVASTATIN 20 MG TAB PO SCH (22:47)
[2021-08-24 05:00] VITALS: BP 96/49
[2021-08-24] MEDS: ALBUTEROL SULF 2.5 MG/0.5ML(0.5%) NEB SOLN NEB PRN ×3 (06:04→12:26)
[2021-08-24] MEDS: ACETYLCYSTEINE 10 %(100MG/ML) SOL 4ML NEB SCH ×4 (06:04→12:00)
[2021-08-24] MEDS: InsuLIN REG 1unit/0.01ml Soln (100units/ml) SC SCH (06:15)
[2021-08-24] MEDS: LEVOTHYROXINE SODIUM 88 MCG TAB PO SCH (06:17)
[2021-08-24] MEDS: MEROPENEM 1GM IVPB 100 ML IV SCH (06:18)
[2021-08-24 09:00] VITALS: BP 98/48
[2021-08-24] MEDS ORDERED: LINE1TAB6 PO (10:01)
[2021-08-24] MEDS ORDERED: LEVO750T8 PO (10:01)
[2021-08-24] MEDS ORDERED: ALBU0.084 NEB (10:03)
[2021-08-24] MEDS: ASPirin 81 mg TAB PO SCH (10:41)
[2021-08-24] MEDS: ENOXAPARIN SOD 40 MG/0.4 ML SYRINGE SC SCH (10:41)
[2021-08-24 11:05] VITALS: BP 98/48
[2021-08-24 13:00] VITALS: BP 99/49
== END 2021-08-24 12:00 | disposition home or self-care (01) | DRG 871 ==
LOC: ER 07:17 → TELE 14:57 → TELE-CENTR 20:14
PROVIDERS: ADMIT Hospitalist; ATTEND Internal Medicine Pulmonary Disease
DX: A41.9 Sepsis, unspecified organism (principal); N17.0 Acute kidney failure with tubular necrosis; J96.01 Acute respiratory failure with hypoxia; J18.9 Pneumonia, unspecified organism; J44.0 Chronic obstructive pulmonary disease with (acute) lower respiratory infection; H50.9 Unspecified strabismus; N18.2 Chronic kidney disease, stage 2 (mild); E11.40 Type 2 diabetes mellitus with diabetic neuropathy, unspecified; E03.9 Hypothyroidism, unspecified; Z20.822 Contact with and (suspected) exposure to COVID-19; E11.22 Type 2 diabetes mellitus with diabetic chronic kidney disease; E11.65 Type 2 diabetes mellitus with hyperglycemia; E78.5 Hyperlipidemia, unspecified; J98.09 Other diseases of bronchus, not elsewhere classified; Q90.1 Trisomy 21, mosaicism (mitotic nondisjunction); Z82.49 Family history of ischemic heart disease and other diseases of the circulatory system
CPT/HCPCS: 36415; 71045; 71250; 80053; 80061; 80307; 81001; 82306; 82607; 82746; 82962; 83735; 83880; 84100; 84484; 84550; 85025; 85379; 85610; 85730; 87040; 87086; 87426; 93005; 94640; 96365; 96367; 99291; G0378; J0696; J1815; J2185; J2543

== ENCOUNTER 2022-12-18 13:38 | Inpatient (IN) | payer MEDICARE ==
[~2022-12-18] VITALS: Ht 165.1 cm; Wt 54.8 kg
[~2022-12-18 13:38] MED LIST changes: +ALBU0.084 NEB; +LEVO750T8 PO; +LINE1TAB6 PO; -POLYSOL15 OP; +POLYSOL28 OP
[2022-12-18] MEDS ORDERED: PIPERACILLIN-TAZOB 3.375GM 100 ML IV ONE (14:15)
[2022-12-18] MEDS ORDERED: VANCOMYCIN 1GM/250ML 250 ML IV ONE (14:15)
[2022-12-18 14:58] LABS: Eosinophils # (auto) 0 10 ^3/uL (0-0.8); Eosinophils % (auto) 0.1 % (0.0-7.0); Lymphocytes # (auto) 1.4 10 ^3/uL (0.4-5.4); Monocytes # (auto) 0.5 10 ^3/uL (0-1.3); Red Cell Distribution Width 15.9 % (11.8-14.3)
[2022-12-18 14:59] LABS: Basophils # (auto) 0.1 10 ^3/uL (0-0.2); Basophils % (auto) 0.5 % (0.0-2.0); Hematocrit 46.1 % (41.0-53.0); Hemoglobin 15.2 g/dL (13.5-17.5); Lymphocytes % (auto) 10.3 % (10.0-50.0); Mean Corpuscular Hemoglobin 34.6 pg (28.0-32.0); Mean Corpuscular Volume 104.8 fL (80.0-100.0); Monocytes % (auto) 3.9 % (0.0-12.0); Neutrophils # (auto) 11.3 10 ^3/uL (1.6-8.6); Neutrophils % (auto) 85.2 % (37.0-80.0); White Blood Cell 13.3 10^3/uL (4.4-10.8)
[2022-12-18 15:13] LABS: Albumin 2.7 g/dL (3.4-5.0); Calcium 8.6 mg/dL (8.5-10.1); Potassium 4.6 mmol/L (3.5-5.1)
[2022-12-18 15:14] LABS: INR 1.1 (0.9-1.15); Partial Thromboplastin Time 30.9 sec (24.6-33.4)
[2022-12-18 15:17] LABS: Bilirubin, Total 0.5 mg/dL (0.2-1.0); Total Protein 7.7 g/dL (6.4-8.2)
[2022-12-18] MEDS ORDERED: DEXTROSE (50%) 50ML SYRG IV PRN (22:45)
[2022-12-18] MEDS ORDERED: DOCUSATE SOD 100 MG CAP PO PRN (22:45)
[2022-12-18] MEDS ORDERED: IPRATROPIUM BROM 0.5 MG/2.5ML INH SOL NEB PRN (22:45)
[2022-12-18] MEDS ORDERED: ACETAMINOPHEN 325 MG TAB PO PRN (22:45)
[2022-12-18] MEDS ORDERED: HYDROcodone-ACET 5/325MG TAB PO PRN (22:45)
[2022-12-18] MEDS ORDERED: ONDANSETRON HCL 4 MG/2 ML VIAL IV PRN (22:45)
[2022-12-18] MEDS ORDERED: ALBUTEROL SULF 2.5 MG/0.5ML(0.5%) NEB SOLN NEB PRN (22:45)
[2022-12-18] MEDS ORDERED: cefTRIAXone 1GM/50ML D5W 50 ML IV SCH (23:00)
[2022-12-18] MEDS ORDERED: MORPHINE SULFATE INJ 2 MG/ml SYRG IV PRN (23:30)
[2022-12-18] MEDS ORDERED: NITROGLYCERIN 0.4 MG SL TAB SL PRN (23:30)
[2022-12-18 23:55] VITALS: BP 111/75
[2022-12-19] MEDS: SODIUM CHLORIDE 0.9% 1,000 ML IV SCH ×2 (00:10→00:11)
[2022-12-19] MEDS: InsuLIN REG 1unit/0.01ml Soln (100units/ml) SC SCH ×3 (06:27→17:00)
[2022-12-19] MEDS: ACCU-CHEK COMFORT CURVE STRIP VI SCH ×4 (06:28→22:00)
[2022-12-19] MEDS: LEVOTHYROXINE SODIUM 88 MCG TAB PO SCH (07:00)
[2022-12-19 07:28] LABS: Basophils # (auto) 0 10 ^3/uL (0-0.2); Basophils % (auto) 0.6 % (0.0-2.0); Eosinophils # (auto) 0 10 ^3/uL (0-0.8); Eosinophils % (auto) 0.4 % (0.0-7.0); Monocytes # (auto) 0.4 10 ^3/uL (0-1.3)
[2022-12-19 07:31] LABS: Hematocrit 37.3 % (41.0-53.0)
[2022-12-19 07:45] LABS: Albumin 2.1 g/dL (3.4-5.0); Calcium 8.1 mg/dL (8.5-10.1)
[2022-12-19] MEDS ORDERED: ALBUMIN 25% 100 ML IV ONE (07:45)
[2022-12-19 07:49] LABS: BUN/Creatinine Ratio 13.6 (10.0-20.0); Bilirubin, Total 0.4 mg/dL (0.2-1.0); Total Protein 6.8 g/dL (6.4-8.2)
[2022-12-19 07:58] LABS: Hemoglobin 12.6 g/dL (13.5-17.5); Red Blood Cells 3.63 10^6/uL (4.5-5.90)
[2022-12-19 07:59] LABS: Mean Corpuscular Hemoglobin 34.6 pg (28.0-32.0); Mean Corpuscular Hgb Conc. 33.3 g/dL (32.0-36.0); Mean Corpuscular Volume 103.9 fL (80.0-100.0); Red Cell Distribution Width 15.7 % (11.8-14.3)
[2022-12-19 08:00] LABS: Lymphocytes # (auto) 1.6 10 ^3/uL (0.4-5.4); Lymphocytes % (auto) 19.7 % (10.0-50.0); Monocytes % (auto) 4.9 % (0.0-12.0); Neutrophils # (auto) 5.9 10 ^3/uL (1.6-8.6); Neutrophils % (auto) 74.4 % (37.0-80.0)
[2022-12-19] MEDS ORDERED: AZITHROMYCIN 500MG/ 250ML 250 ML IV SCH (10:00)
[2022-12-19] MEDS: FAMOTIDINE (10MG/ML) 2ML VL IV SCH (10:21)
[2022-12-19] MEDS: ASCORBIC ACID 500 MG TAB PO SCH (10:21)
[2022-12-19] MEDS: ZINC SULFATE 220mg CAP or TAB PO SCH (10:21)
[2022-12-19] MEDS: ASPirin 81 mg TAB PO SCH (10:21)
[2022-12-19] MEDS ORDERED: VANCOMYCIN PER PHARMACY 0 MG IV SCH (12:45)
[2022-12-19] MEDS: VANCOMYCIN 1GM/250ML 250 ML IV SCH (14:16)
[2022-12-19] MEDS: PIPERACILLIN-TAZOB 3.375GM 100 ML IV SCH (15:39)
[2022-12-19 22:00] VITALS: BP 125/65
[2022-12-19] MEDS ORDERED: InsuLIN REG 1unit/0.01ml Soln (100units/ml) SC SCH (22:00)
[2022-12-19 23:02] VITALS: BP 98/57
[2022-12-20] MEDS: ASCORBIC ACID 500 MG TAB PO SCH ×2 (00:23→09:14)
[2022-12-20] MEDS: PIPERACILLIN-TAZOB 3.375GM 100 ML IV SCH ×2 (00:23→06:56)
[2022-12-20] MEDS: VANCOMYCIN 1GM/250ML 250 ML IV SCH (04:33)
[2022-12-20 05:00] VITALS: BP 114/67
[2022-12-20] MEDS: LEVOTHYROXINE SODIUM 88 MCG TAB PO SCH (06:56)
[2022-12-20] MEDS: ACCU-CHEK COMFORT CURVE STRIP VI SCH ×2 (07:03→12:02)
[2022-12-20] MEDS: InsuLIN REG 1unit/0.01ml Soln (100units/ml) SC SCH ×2 (07:03→11:30)
[2022-12-20 08:00] VITALS: BP 124/66
[2022-12-20 09:00] VITALS: BP 124/66
[2022-12-20] MEDS: FAMOTIDINE (10MG/ML) 2ML VL IV SCH (09:13)
[2022-12-20] MEDS: ASPirin 81 mg TAB PO SCH (09:14)
[2022-12-20] MEDS: ZINC SULFATE 220mg CAP or TAB PO SCH (09:14)
[2022-12-20] MEDS: SODIUM CHLORIDE 0.9% 1,000 ML IV SCH (09:16)
[2022-12-20] MEDS ORDERED: DOXY-286 PO (09:45)
[2022-12-20] MEDS ORDERED: GENT0.3S10 EACHEYE (09:45)
[2022-12-20 11:43] VITALS: BP 124/66
== END 2022-12-20 13:03 | disposition home or self-care (01) | DRG 190 ==
LOC: ER 13:38 → OVERFLOW 23:26 → CENTRAL 12-19 21:32
PROVIDERS: ADMIT Nurse Practitioner Family; ATTEND Family Medicine
DX: J44.1 Chronic obstructive pulmonary disease with (acute) exacerbation (principal); J18.9 Pneumonia, unspecified organism; J44.0 Chronic obstructive pulmonary disease with (acute) lower respiratory infection; E11.9 Type 2 diabetes mellitus without complications; E03.9 Hypothyroidism, unspecified; E88.09 Other disorders of plasma-protein metabolism, not elsewhere classified; I10 Essential (primary) hypertension; M10.9 Gout, unspecified; Q90.9 Down syndrome, unspecified; Z87.01 Personal history of pneumonia (recurrent); Z82.49 Family history of ischemic heart disease and other diseases of the circulatory system; Z82.5 Family history of asthma and other chronic lower respiratory diseases
CPT/HCPCS: 36415; 71045; 80053; 82565; 82962; 83036; 83880; 84484; 85025; 85610; 85730; 87040; 93005; 96365; 96366; 96367; G0378; J0696; J1815; J2543; J3490; P9047

== ENCOUNTER 2023-04-05 05:31 | Inpatient (IN) | payer MEDICARE ==
[~2023-04-05] VITALS: Ht 162.6 cm; Wt 56.5 kg
[~2023-04-05 05:31] MED LIST changes: +DOXY-286 PO; +GENT0.3S10 EACHEYE
[2023-04-05 07:06] LABS: Eosinophils # (auto) 0 10 ^3/uL (0-0.8); Hemoglobin 17.2 g/dL (13.5-17.5); Lymphocytes # (auto) 2.2 10 ^3/uL (0.4-5.4); Monocytes # (auto) 0.4 10 ^3/uL (0-1.3); Neutrophils # (auto) 1.6 10 ^3/uL (1.6-8.6); White Blood Cell 4.3 10^3/uL (4.4-10.8)
[2023-04-05 07:08] LABS: Basophils # (auto) 0 10 ^3/uL (0-0.2); Basophils % (auto) 0.8 % (0.0-2.0); Eosinophils % (auto) 0.8 % (0.0-7.0); Hematocrit 51.9 % (41.0-53.0); Lymphocytes % (auto) 51.5 % (10.0-50.0); Mean Corpuscular Hemoglobin 35.1 pg (28.0-32.0); Mean Corpuscular Hgb Conc. 33.1 g/dL (32.0-36.0); Mean Corpuscular Volume 105.9 fL (80.0-100.0); Monocytes % (auto) 8.7 % (0.0-12.0); Neutrophils % (auto) 38.2 % (37.0-80.0); Nucleated Red Blood Cells % 0.2 %; Red Cell Distribution Width 16.1 % (11.8-14.3)
[2023-04-05] MEDS ORDERED: METR375C PO (07:09)
[2023-04-05] MEDS ORDERED: SODIUM CHLORIDE 0.9% 1,000 ML IV ONE (07:15)
[2023-04-05 07:23] LABS: Alanine Aminotransferase 21 U/L (7-40); Albumin 3.8 g/dL (3.2-4.8); Alkaline Phosphatase 73 U/L (46-116); Anion Gap 3.3 (5-15); Aspartate Aminotransferase 20 U/L (13-40); BUN/Creatinine Ratio 8.5 (10.0-20.0); Blood Urea Nitrogen 10 mg/dL (9-23); Carbon Dioxide 31.7 mmol/L (20-30); Chloride 102 mmol/L (98-107); Glucose 119 mg/dL (74-106); Sodium 137 mmol/L (136-145); Total Protein 7.8 g/dL (5.7-8.2)
[2023-04-05 07:29] LABS: Urine Bacteria NONE SEEN /hpf (None Seen); Urine Blood Negative /uL (Negative); Urine Clarity Clear (Clear); Urine Color Yellow (Yellow); Urine Protein, UAD Negative (Negative); Urine Specific Gravity 1.017 (1.001-1.035); Urine Urobilinogen Normal (Negative); Urine WBC 3 /hpf (0 - 3)
[2023-04-05 08:04] VITALS: PULSE 81; RESP 12; O2SAT 94
[2023-04-05] MEDS ORDERED: PANTOPRAZOLE 40 MG/10 ML VIAL INJ IV ONE (09:00)
[2023-04-05] MEDS ORDERED: SODIUM CHLORIDE 0.9% 1,000 ML IV SCH (09:00)
[2023-04-05] MEDS ORDERED: ACETAMINOPHEN 325 MG TAB PO PRN ×2 (09:00)
[2023-04-05 09:24] LABS: INR 1.14 (0.9-1.15); Prothrombin Time 11.9 sec (9.3-11.8)
[2023-04-05] MEDS: SODIUM CHLORIDE 0.9% 1,000 ML IV SCH ×2 (11:00→17:47)
[2023-04-05] MEDS: PANTOPRAZOLE 40 MG/10 ML VIAL INJ IV SCH (11:01)
[2023-04-05 18:18] LABS: Basophils # (auto) 0 10 ^3/uL (0-0.2); Eosinophils # (auto) 0 10 ^3/uL (0-0.8); Lymphocytes # (auto) 2.1 10 ^3/uL (0.4-5.4); Monocytes # (auto) 0.4 10 ^3/uL (0-1.3); Nucleated Red Blood Cells % 0.2 %
[2023-04-05 18:21] LABS: Basophils % (auto) 0.8 % (0.0-2.0); Eosinophils % (auto) 0.3 % (0.0-7.0); Hematocrit 44.4 % (41.0-53.0); Hemoglobin 14.8 g/dL (13.5-17.5); Lymphocytes % (auto) 46.3 % (10.0-50.0); Mean Corpuscular Hemoglobin 35.4 pg (28.0-32.0); Mean Corpuscular Hgb Conc. 33.3 g/dL (32.0-36.0); Mean Corpuscular Volume 106.3 fL (80.0-100.0); Monocytes % (auto) 8.9 % (0.0-12.0); Neutrophils % (auto) 43.7 % (37.0-80.0); Red Blood Cells 4.17 10^6/uL (4.5-5.90); Red Cell Distribution Width 15.9 % (11.8-14.3); White Blood Cell 4.6 10^3/uL (4.4-10.8)
[2023-04-05 22:00] VITALS: BP 119/70; PULSE 59; RESP 18; TEMP 97.4; O2SAT 100
[2023-04-05 22:27] VITALS: PULSE 62; RESP 22; O2SAT 96
[2023-04-06 00:55] LABS: Basophils # (auto) 0 10 ^3/uL (0-0.2); Eosinophils # (auto) 0 10 ^3/uL (0-0.8); Eosinophils % (auto) 0.9 % (0.0-7.0); Hemoglobin 14.1 g/dL (13.5-17.5); Lymphocytes # (auto) 1.9 10 ^3/uL (0.4-5.4); Lymphocytes % (auto) 45.7 % (10.0-50.0); Mean Corpuscular Hemoglobin 34.9 pg (28.0-32.0); Mean Corpuscular Hgb Conc. 32.9 g/dL (32.0-36.0); Mean Corpuscular Volume 106.1 fL (80.0-100.0); Monocytes # (auto) 0.4 10 ^3/uL (0-1.3); Monocytes % (auto) 8.9 % (0.0-12.0); Neutrophils # (auto) 1.8 10 ^3/uL (1.6-8.6); Neutrophils % (auto) 43.5 % (37.0-80.0); Nucleated Red Blood Cells % 0.1 %; Red Blood Cells 4.05 10^6/uL (4.5-5.90); Red Cell Distribution Width 15.9 % (11.8-14.3); White Blood Cell 4.1 10^3/uL (4.4-10.8)
[2023-04-06] MEDS: SODIUM CHLORIDE 0.9% 1,000 ML IV SCH ×4 (03:28→21:22)
[2023-04-06 05:00] VITALS: BP 115/61; PULSE 63; RESP 18; TEMP 97.5; O2SAT 94
[2023-04-06 05:50] LABS: Basophils # (auto) 0 10 ^3/uL (0-0.2); Basophils % (auto) 0.8 % (0.0-2.0); Eosinophils # (auto) 0 10 ^3/uL (0-0.8); Eosinophils % (auto) 0.6 % (0.0-7.0); Hemoglobin 14.4 g/dL (13.5-17.5); Lymphocytes # (auto) 2.5 10 ^3/uL (0.4-5.4); Monocytes # (auto) 0.4 10 ^3/uL (0-1.3); Neutrophils # (auto) 1.8 10 ^3/uL (1.6-8.6); Neutrophils % (auto) 37.5 % (37.0-80.0)
[2023-04-06 05:54] LABS: Hematocrit 42.4 % (41.0-53.0); Lymphocytes % (auto) 52.6 % (10.0-50.0); Mean Corpuscular Hemoglobin 35.9 pg (28.0-32.0); Mean Corpuscular Volume 105.7 fL (80.0-100.0); Monocytes % (auto) 8.5 % (0.0-12.0); Nucleated Red Blood Cells % 0.1 %; Red Blood Cells 4.01 10^6/uL (4.5-5.90); Red Cell Distribution Width 15.8 % (11.8-14.3); White Blood Cell 4.8 10^3/uL (4.4-10.8)
[2023-04-06 06:05] LABS: Alanine Aminotransferase 14 U/L (7-40); Alkaline Phosphatase 54 U/L (46-116); Anion Gap 4.2 (5-15); Aspartate Aminotransferase 16 U/L (13-40); BUN/Creatinine Ratio 8.8 (10.0-20.0); Blood Urea Nitrogen 8 mg/dL (9-23); Carbon Dioxide 26.8 mmol/L (20-30); Chloride 108 mmol/L (98-107); Potassium 3.8 mmol/L (3.5-5.1); Sodium 139 mmol/L (136-145)
[2023-04-06 06:06] LABS: Bilirubin, Total 0.9 mg/dL (0.2-1.0); Total Protein 6.1 g/dL (5.7-8.2)
[2023-04-06] MEDS: LEVOTHYROXINE SODIUM 88 MCG TAB PO SCH (06:18)
[2023-04-06 06:25] LABS: Glucose 95 mg/dL (74-106)
[2023-04-06 09:00] VITALS: BP 97/51; PULSE 54; RESP 16; TEMP 98.3; O2SAT 97
[2023-04-06] MEDS: PANTOPRAZOLE 40 MG/10 ML VIAL INJ IV SCH (11:09)
[2023-04-06 12:26] LABS: Basophils # (auto) 0 10 ^3/uL (0-0.2); Eosinophils # (auto) 0 10 ^3/uL (0-0.8); Mean Corpuscular Volume 106.2 fL (80.0-100.0); Monocytes # (auto) 0.3 10 ^3/uL (0-1.3); Neutrophils # (auto) 1.5 10 ^3/uL (1.6-8.6)
[2023-04-06 12:29] LABS: Eosinophils % (auto) 0.6 % (0.0-7.0); Hematocrit 41.8 % (41.0-53.0); Hemoglobin 13.6 g/dL (13.5-17.5); Lymphocytes # (auto) 1.7 10 ^3/uL (0.4-5.4); Lymphocytes % (auto) 48.2 % (10.0-50.0); Mean Corpuscular Hemoglobin 34.6 pg (28.0-32.0); Mean Corpuscular Hgb Conc. 32.6 g/dL (32.0-36.0); Monocytes % (auto) 7.1 % (0.0-12.0); Neutrophils % (auto) 43.1 % (37.0-80.0); Nucleated Red Blood Cells % 0.2 %; Red Blood Cells 3.94 10^6/uL (4.5-5.90); Red Cell Distribution Width 15.5 % (11.8-14.3); White Blood Cell 3.5 10^3/uL (4.4-10.8)
[2023-04-06 13:13] VITALS: BP 94/55; PULSE 63; RESP 16; TEMP 98.2; O2SAT 98
[2023-04-06] MEDS ORDERED: MIDAZOLAM HCL 2MG/2ML 2ml VIAL (1mg/ml) ONE (15:43)
[2023-04-06] MEDS ORDERED: PROPOFOL 10 MG/ML 20 ML IV ONE (15:55)
[2023-04-06 17:00] VITALS: BP 108/62; PULSE 61; RESP 20; TEMP 97.4; O2SAT 100
[2023-04-06 18:59] LABS: Basophils # (auto) 0.1 10 ^3/uL (0-0.2); Eosinophils # (auto) 0 10 ^3/uL (0-0.8); Lymphocytes # (auto) 1.4 10 ^3/uL (0.4-5.4); Monocytes # (auto) 0.3 10 ^3/uL (0-1.3); Neutrophils % (auto) 66.2 % (37.0-80.0)
[2023-04-06 19:01] LABS: Eosinophils % (auto) 0.2 % (0.0-7.0); Hemoglobin 13.9 g/dL (13.5-17.5); Lymphocytes % (auto) 27.3 % (10.0-50.0); Mean Corpuscular Hemoglobin 35.1 pg (28.0-32.0); Mean Corpuscular Hgb Conc. 33.1 g/dL (32.0-36.0); Mean Corpuscular Volume 105.9 fL (80.0-100.0); Monocytes % (auto) 5.3 % (0.0-12.0); Neutrophils # (auto) 3.4 10 ^3/uL (1.6-8.6); Nucleated Red Blood Cells % 0.1 %; Red Blood Cells 3.97 10^6/uL (4.5-5.90); Red Cell Distribution Width 15.3 % (11.8-14.3); White Blood Cell 5.1 10^3/uL (4.4-10.8)
[2023-04-06 20:00] VITALS: BP 115/63; PULSE 74; RESP 18; TEMP 98.2
[2023-04-06 22:00] VITALS: BP 115/63; PULSE 74; RESP 18; TEMP 98.2; O2SAT 94
[2023-04-07] MEDS: LEVOTHYROXINE SODIUM 88 MCG TAB PO SCH (06:14)
[2023-04-07 08:00] VITALS: BP 115/63; PULSE 74; RESP 18; TEMP 98.2
[2023-04-07] MEDS: SODIUM CHLORIDE 0.9% 1,000 ML IV SCH (08:00)
[2023-04-07 09:00] VITALS: BP 121/71; PULSE 67; RESP 18; TEMP 97.9; O2SAT 96
[2023-04-07 09:49] LABS: Basophils # (auto) 0 10 ^3/uL (0-0.2); Basophils % (auto) 0.8 % (0.0-2.0); Eosinophils # (auto) 0 10 ^3/uL (0-0.8); Hemoglobin 14.3 g/dL (13.5-17.5); Lymphocytes # (auto) 1.2 10 ^3/uL (0.4-5.4)
[2023-04-07 09:51] LABS: Eosinophils % (auto) 0.2 % (0.0-7.0); Hematocrit 42.9 % (41.0-53.0); Lymphocytes % (auto) 26.2 % (10.0-50.0); Mean Corpuscular Hemoglobin 35.4 pg (28.0-32.0); Mean Corpuscular Hgb Conc. 33.3 g/dL (32.0-36.0); Mean Corpuscular Volume 106.1 fL (80.0-100.0); Monocytes # (auto) 0.2 10 ^3/uL (0-1.3); Neutrophils # (auto) 3.1 10 ^3/uL (1.6-8.6); Neutrophils % (auto) 67.8 % (37.0-80.0); Nucleated Red Blood Cells % 0.2 %; Red Blood Cells 4.04 10^6/uL (4.5-5.90); Red Cell Distribution Width 15.6 % (11.8-14.3); White Blood Cell 4.6 10^3/uL (4.4-10.8)
[2023-04-07] MEDS: PANTOPRAZOLE 40 MG/10 ML VIAL INJ IV SCH (10:00)
[2023-04-07] MEDS ORDERED: ALLOPURINOL 100 MG TAB PO SCH (10:00)
[2023-04-07] MEDS ORDERED: PANT40TA2 PO (10:00)
[2023-04-07 10:25] LABS: Chloride 106 mmol/L (98-107); Potassium 3.7 mmol/L (3.5-5.1); Sodium 137 mmol/L (136-145)
[2023-04-07 10:26] LABS: Anion Gap 4.3 (5-15); Calcium 8.1 mg/dL (8.5-10.1); Carbon Dioxide 26.7 mmol/L (20-30)
[2023-04-07 10:31] LABS: BUN/Creatinine Ratio 7.3 (10.0-20.0); Blood Urea Nitrogen 7 mg/dL (9-23); Glucose 137 mg/dL (74-106)
[2023-04-07 13:00] VITALS: BP 100/56; PULSE 65; RESP 18; TEMP 97.7; O2SAT 96
== END 2023-04-07 12:55 | disposition home or self-care (01) | DRG 395 ==
LOC: ER 05:31 → OVERFLOW 08:58 → EAST 22:16
PROVIDERS: ADMIT Internal Medicine
PROC: 0DB68ZX Excision of Stomach, Via Natural or Artificial Opening Endoscopic, Diagnostic (ICD-10-PCS; 2023-04-06)
PROC: 0DB48ZX Excision of Esophagogastric Junction, Via Natural or Artificial Opening Endoscopic, Diagnostic (ICD-10-PCS; 2023-04-06)
PROC: 0DB98ZX Excision of Duodenum, Via Natural or Artificial Opening Endoscopic, Diagnostic (ICD-10-PCS; principal; 2023-04-06 15:37)
DX: K55.9 Vascular disorder of intestine, unspecified (principal); K44.9 Diaphragmatic hernia without obstruction or gangrene; E11.9 Type 2 diabetes mellitus without complications; R13.10 Dysphagia, unspecified; K29.70 Gastritis, unspecified, without bleeding; K20.90 Esophagitis, unspecified without bleeding; E03.9 Hypothyroidism, unspecified; J44.9 Chronic obstructive pulmonary disease, unspecified; M10.9 Gout, unspecified; Q90.9 Down syndrome, unspecified; Z82.49 Family history of ischemic heart disease and other diseases of the circulatory system; Z82.5 Family history of asthma and other chronic lower respiratory diseases
CPT/HCPCS: 36415; 71045; 74176; 80048; 80053; 81001; 83036; 84443; 84484; 85025; 85610; 86850; 86900; 86901; 96361; 96374; C9113; G0378; J2250; J2704

== ENCOUNTER → 2023-08-22 01:54 | Emergency (ER) | payer MEDICARE ==
[~2023-08-22 01:54] MED LIST changes: +METR375C PO; +PANT40TA2 PO
== END | disposition left against medical advice (07) ==
LOC: ER 01:54
DX: R06.02 Shortness of breath (principal); Z53.21 Procedure and treatment not carried out due to patient leaving prior to being seen by health care provider

== ENCOUNTER 2023-09-21 06:13 | Inpatient (IN) | payer MEDICARE ==
[~2023-09-21] VITALS: Ht 165.1 cm; Wt 57.2 kg
[2023-09-21] MEDS: IPRATROPIUM BROM 0.5 MG/2.5ML INH SOL HHN ONE (10:06)
[2023-09-21] MEDS: ALBUTEROL SULF 2.5 MG/0.5ML(0.5%) NEB SOLN HHN ONE (10:06)
[2023-09-21 10:15] LABS: Base Excess 3.5 mmol/L (-2.0-2.0)
[2023-09-21 10:38] LABS: Basophils # (auto) 0 10 ^3/uL (0-0.2); Basophils % (auto) 0.2 % (0.0-2.0); Eosinophils # (auto) 0 10 ^3/uL (0-0.8); Eosinophils % (auto) 0.2 % (0.0-7.0); Hematocrit 50.2 % (41.0-53.0); Hemoglobin 16.4 g/dL (13.5-17.5); Lymphocytes # (auto) 1.8 10 ^3/uL (0.4-5.4); Lymphocytes % (auto) 17.1 % (10.0-50.0); Mean Corpuscular Hemoglobin 34.5 pg (28.0-32.0); Mean Corpuscular Hgb Conc. 32.7 g/dL (32.0-36.0); Mean Corpuscular Volume 105.6 fL (80.0-100.0); Monocytes # (auto) 0.7 10 ^3/uL (0-1.3); Monocytes % (auto) 6.5 % (0.0-12.0); Neutrophils # (auto) 7.9 10 ^3/uL (1.6-8.6); Nucleated Red Blood Cells % 0.1 %; Red Blood Cells 4.76 10^6/uL (4.5-5.90); Red Cell Distribution Width 16.2 % (11.8-14.3); White Blood Cell 10.4 10^3/uL (4.4-10.8)
[2023-09-21 10:44] VITALS: BP 102/58; PULSE 53; RESP 17; TEMP 98.1; O2SAT 96
[2023-09-21] MEDS: SODIUM CHLORIDE 0.9% 1,000 ML IV ONE (10:48)
[2023-09-21] MEDS: ACETAMINOPHEN 325 MG TAB PO ONE (10:51)
[2023-09-21] MEDS: methylPREDNISolone SOD SUCC 125 MG/2 ML VL IV ONE (11:00)
[2023-09-21] MEDS: cefTRIAXone 1GM/50ML D5W 50 ML IV ONE (11:01)
[2023-09-21 11:28] LABS: Alanine Aminotransferase 21 U/L (7-40); Albumin 3.1 g/dL (3.2-4.8); Alkaline Phosphatase 72 U/L (46-116); Anion Gap 6 (5-15); Aspartate Aminotransferase 20 U/L (13-40); BUN/Creatinine Ratio 14.6 (10.0-20.0); Bilirubin, Total 0.8 mg/dL (0.2-1.0); Blood Urea Nitrogen 18 mg/dL (9-23); Calcium 8.4 mg/dL (8.7-10.4); Carbon Dioxide 28 mmol/L (20-30); Chloride 102 mmol/L (98-107); Glucose 143 mg/dL (74-106); Magnesium 2.3 mg/dL (1.6-2.6); Sodium 136 mmol/L (136-145); Total Protein 6.8 g/dL (5.7-8.2)
[2023-09-21] MEDS: IOHEXOL 350 MG/ML 100ML IJ ONE (11:41)
[2023-09-21 12:21] LABS: Rapid Influenza A Negative (Negative); Rapid Influenza B Negative (Negative)
[2023-09-21] MEDS: VANCOMYCIN PER PHARMACY 0 MG IV SCH (13:50)
[2023-09-21] MEDS ORDERED: HYDROCORTISONE SOD SUCC 100 MG/2ML INJ VIAL IV ONE (17:30)
[2023-09-21] MEDS ORDERED: ALBUTEROL SULF 2.5 MG/0.5ML(0.5%) NEB SOLN NEB PRN (17:30)
[2023-09-21] MEDS ORDERED: IPRATROPIUM BROM 0.5 MG/2.5ML INH SOL NEB PRN (17:30)
[2023-09-21 18:31] LABS: Folate (Folic Acid) 18.89 ng/mL (>5.38)
[2023-09-21 19:09] VITALS: O2SAT 93
[2023-09-21] MEDS: SODIUM CHLORIDE 0.9% 1,000 ML IV SCH (20:26)
[2023-09-21] MEDS: AZITHROMYCIN 500MG/ 250ML 250 ML IV ONE (20:26)
[2023-09-21] MEDS: PANTOPRAZOLE 40 MG/10 ML VIAL INJ IV ONE (20:32)
[2023-09-21] MEDS: LEVOTHYROXINE SODIUM 88 MCG TAB PO ONE (22:33)
[2023-09-21] MEDS: VANCOMYCIN 750mg/150ml 150 ML IV ONE (22:33)
[2023-09-21] MEDS: methylPREDNISolone SOD SUCC 40 MG/ML VL IV SCH (22:54)
[2023-09-22] VITALS (8 sets, daily range): BP systolic 77–105; BP diastolic 41–50; PULSE 59–95; RESP 16–18; TEMP 97.5–97.8; O2SAT 93–100
[2023-09-22 00:14] LABS: COVID19 ANTIGEN SOFIA FIA NEGATIVE (NEGATIVE)
[2023-09-22 05:34] LABS: Hemoglobin 12.7 g/dL (13.5-17.5)
[2023-09-22 05:38] LABS: Basophils # (auto) 0 10 ^3/uL (0-0.2); Eosinophils # (auto) 0 10 ^3/uL (0-0.8); Hematocrit 38.5 % (41.0-53.0); Lymphocytes # (auto) 0.9 10 ^3/uL (0.4-5.4); Mean Corpuscular Hemoglobin 34.6 pg (28.0-32.0); Mean Corpuscular Volume 104.9 fL (80.0-100.0); Monocytes # (auto) 0.2 10 ^3/uL (0-1.3); Monocytes % (auto) 1.1 % (0.0-12.0); Neutrophils # (auto) 13.8 10 ^3/uL (1.6-8.6); Neutrophils % (auto) 92.9 % (37.0-80.0); Red Blood Cells 3.67 10^6/uL (4.5-5.90); Red Cell Distribution Width 16.2 % (11.8-14.3); White Blood Cell 14.9 10^3/uL (4.4-10.8)
[2023-09-22 05:44] LABS: Chloride 102 mmol/L (98-107); Potassium 4.9 mmol/L (3.5-5.1); Sodium 134 mmol/L (136-145)
[2023-09-22 05:45] LABS: Anion Gap 4 (5-15); Calcium 8.2 mg/dL (8.5-10.1); Carbon Dioxide 28 mmol/L (20-30)
[2023-09-22 05:50] LABS: BUN/Creatinine Ratio 10.2 (10.0-20.0); Blood Urea Nitrogen 13 mg/dL (9-23); Triglycerides 96 mg/dL (< 150)
[2023-09-22 05:51] LABS: LDL Cholesterol 67 mg/dL (< 100)
[2023-09-22 05:52] LABS: Cholesterol 109 mg/dL (< 200); HDL Cholesterol 30 mg/dL (40-59)
[2023-09-22 06:02] LABS: Glucose 322 mg/dL (74-106)
[2023-09-22 06:16] LABS: Magnesium 2.2 mg/dL (1.6-2.6)
[2023-09-22] MEDS: LEVOTHYROXINE SODIUM 88 MCG TAB PO SCH (06:25)
[2023-09-22] MEDS: cefTRIAXone 1GM/50ML D5W 50 ML IV SCH (08:32)
[2023-09-22 09:58] LABS: Lactic Acid w/Reflex 2.1 mmol/L (0.4-2.0)
[2023-09-22] MEDS ORDERED: HYDROCORTISONE SOD SUCC 100 MG/2ML INJ VIAL IV SCH (10:00)
[2023-09-22] MEDS: INSULIN LANTUS (GLARGINE) 1 /0.01ml (100units/ml) SC SCH (10:15)
[2023-09-22] MEDS: AZITHROMYCIN 500MG/ 250ML 250 ML IV SCH (10:15)
[2023-09-22] MEDS: PANTOPRAZOLE 40 MG/10 ML VIAL INJ IV SCH (10:18)
[2023-09-22 11:28] LABS: Urine Bacteria NONE SEEN /hpf (None Seen); Urine Blood Negative /uL (Negative); Urine Clarity Clear (Clear); Urine Color Yellow (Yellow); Urine Protein, UAD TRACE (Negative); Urine Specific Gravity 1.041 (1.001-1.035); Urine Urobilinogen Normal (Negative); Urine WBC 1 /hpf (0 - 3); Urine pH 6.5 (5.0-8.0)
[2023-09-22] MEDS: INSULIN LISPRO (HUMAN) 100 UNITS/ML ML SC SCH (12:00)
[2023-09-23] VITALS (12 sets, daily range): BP systolic 72–100; BP diastolic 36–47; PULSE 36–70; RESP 15–18; TEMP 97.3–98.6; O2SAT 94–100
[2023-09-23 05:46] LABS: Hematocrit 38.4 % (41.0-53.0); Hemoglobin 12.4 g/dL (13.5-17.5); Mean Corpuscular Hemoglobin 33.8 pg (28.0-32.0); Mean Corpuscular Hgb Conc. 32.3 g/dL (32.0-36.0); Mean Corpuscular Volume 104.5 fL (80.0-100.0); Red Blood Cells 3.67 10^6/uL (4.5-5.90); Red Cell Distribution Width 16.5 % (11.8-14.3)
[2023-09-23 05:50] LABS: Basophils % (manual) 0 (0.0-2.0); Blast Cells 0; Eosinophils % (manual) 0 (0-7); Metamyelocytes % 0; Monocytes % (manual) 0 (0-12); Myelocytes % 0; Promyelocytes % 0; Reactive Lymphocytes 0
[2023-09-23 05:54] LABS: Anion Gap 3 (5-15); Carbon Dioxide 28 mmol/L (20-30); Chloride 108 mmol/L (98-107); Potassium 4.4 mmol/L (3.5-5.1); Sodium 139 mmol/L (136-145)
[2023-09-23 05:55] LABS: Calcium 7.8 mg/dL (8.7-10.4)
[2023-09-23 06:00] LABS: Blood Urea Nitrogen 15 mg/dL (9-23); Glucose 157 mg/dL (74-106)
[2023-09-23 06:01] LABS: Magnesium 2.1 mg/dL (1.6-2.6)
[2023-09-23 06:36] LABS: Band Neutrophils % (manual) 11; Lymphocytes % (manual) 9 (10.0-50.0); Platelet Estimate Adequate
[2023-09-24 05:55] VITALS: BP 90/42; PULSE 53; RESP 17; TEMP 97.5; O2SAT 95
[2023-09-24 08:00] VITALS: PULSE 62; RESP 18; O2SAT 98
[2023-09-24 08:46] VITALS: BP 90/53; PULSE 34; RESP 18; TEMP 98; O2SAT 94
[2023-09-24 10:23] VITALS: O2SAT 94
[2023-09-24 10:41] LABS: Basophils # (auto) 0 10 ^3/uL (0-0.2); Eosinophils # (auto) 0 10 ^3/uL (0-0.8); Hematocrit 40.3 % (41.0-53.0); Hemoglobin 13.2 g/dL (13.5-17.5); Mean Corpuscular Hgb Conc. 32.7 g/dL (32.0-36.0); Monocytes # (auto) 0.5 10 ^3/uL (0-1.3); Neutrophils # (auto) 9.5 10 ^3/uL (1.6-8.6); White Blood Cell 12.7 10^3/uL (4.4-10.8)
[2023-09-24 10:43] LABS: Lymphocytes # (auto) 2.7 10 ^3/uL (0.4-5.4); Mean Corpuscular Hemoglobin 34.1 pg (28.0-32.0); Mean Corpuscular Volume 104.3 fL (80.0-100.0); Monocytes % (auto) 4.1 % (0.0-12.0); Neutrophils % (auto) 74.9 % (37.0-80.0); Red Blood Cells 3.87 10^6/uL (4.5-5.90); Red Cell Distribution Width 15.9 % (11.8-14.3)
[2023-09-24 10:54] LABS: Chloride 105 mmol/L (98-107); Sodium 139 mmol/L (136-145)
[2023-09-24 10:55] LABS: Anion Gap 5 (5-15); Calcium 7.8 mg/dL (8.7-10.4); Carbon Dioxide 29 mmol/L (20-30)
[2023-09-24 11:00] LABS: BUN/Creatinine Ratio 12.6 (10.0-20.0); Blood Urea Nitrogen 16 mg/dL (9-23); Glucose 144 mg/dL (74-106); Magnesium 2.1 mg/dL (1.6-2.6)
[2023-09-24] MEDS: PANTOPRAZOLE 40 MG TAB PO SCH (11:46)
[2023-09-24] MEDS: methylPREDNISolone SOD SUCC 40 MG/ML VL IV SCH (11:46)
[2023-09-24 13:00] VITALS: BP_SYST 101; BP_SYST 85; BP_DIAS 51; BP_DIAS 58; PULSE 61; RESP 18; TEMP 98.4; O2SAT 99
[2023-09-24] MEDS ORDERED: METF-370 PO (14:04)
[2023-09-24] MEDS ORDERED: AUG875T PO (14:04)
[2023-09-24 17:00] VITALS: BP 103/58; PULSE 56; RESP 18; TEMP 97.8; O2SAT 94
== END 2023-09-24 20:12 | disposition home or self-care (01) | DRG 177 ==
LOC: ER 06:13 → OVERFLOW 16:48 → EAST 22:00 → TELE-EAST 09-24 10:04
PROVIDERS: ADMIT Internal Medicine Geriatric Medicine; ATTEND Internal Medicine Geriatric Medicine
DX: J15.69 Pneumonia due to other Gram-negative bacteria (principal); J96.00 Acute respiratory failure, unspecified whether with hypoxia or hypercapnia; J44.1 Chronic obstructive pulmonary disease with (acute) exacerbation; R65.10 Systemic inflammatory response syndrome (SIRS) of non-infectious origin without acute organ dysfunction; E44.1 Mild protein-calorie malnutrition; Z68.1 Body mass index [BMI] 19.9 or less, adult; J44.0 Chronic obstructive pulmonary disease with (acute) lower respiratory infection; J15.9 Unspecified bacterial pneumonia; Z20.822 Contact with and (suspected) exposure to COVID-19; E07.9 Disorder of thyroid, unspecified; I35.0 Nonrheumatic aortic (valve) stenosis; E11.9 Type 2 diabetes mellitus without complications; I10 Essential (primary) hypertension; E03.9 Hypothyroidism, unspecified; E78.5 Hyperlipidemia, unspecified; Q90.9 Down syndrome, unspecified; Z94.7 Corneal transplant status; Z82.5 Family history of asthma and other chronic lower respiratory diseases; Z82.49 Family history of ischemic heart disease and other diseases of the circulatory system; Z80.9 Family history of malignant neoplasm, unspecified
CPT/HCPCS: 36415; 36600; 71045; 71275; 80048; 80053; 80061; 81001; 82607; 82746; 82805; 82962; 83036; 83605; 83735; 83880; 84443; 84484; 85007; 85025; 85027; 85379; 86141; 87040; 87081; 87426; 87804; 93005; 93306; 94644; 96361; 96365; 96367; 96375; 97163; C9113; G0378; J1815

== ENCOUNTER 2024-02-29 04:58 | Inpatient (IN) | payer MEDICARE ==
[~2024-02-29] VITALS: Ht 30.5 cm; Wt 50.5 kg
[2024-02-29] VITALS (9 sets, daily range): BP systolic 80; BP diastolic 46; PULSE 65–75; RESP 14–19; TEMP 98.3; O2SAT 95–100
[~2024-02-29 04:58] MED LIST changes: -ALBUAER3 IN; -AMOX500T86 PO; +AUG875T PO; -AZIT500T66 PO; -CHOL1CAP47 PO; -DOXY-286 PO; -ERY05OO OP; -GENT0.3S10 EACHEYE; -LEVO750T8 PO; -LINE1TAB6 PO; +METF-370 PO; -METR375C PO; -PANT40TA2 PO; -POLYSOL28 OP; -PRED1SUS4 OP; -ZINC220T6 PO
[2024-02-29 07:05] LABS: Urine Bacteria None Seen /hpf (None Seen)
[2024-02-29 07:09] LABS: Basophils # (auto) 0.1 10 ^3/uL (0-0.2); Basophils % (auto) 0.5 % (0.0-2.0); Eosinophils # (auto) 0 10 ^3/uL (0-0.8); Hematocrit 36.9 % (41.0-53.0); Hemoglobin 12.5 g/dL (13.5-17.5); Lymphocytes % (auto) 7.6 % (10.0-50.0); Mean Corpuscular Hemoglobin 35.8 pg (28.0-32.0); Mean Corpuscular Hgb Conc. 33.8 g/dL (32.0-36.0); Mean Corpuscular Volume 105.9 fL (80.0-100.0); Monocytes # (auto) 0.4 10 ^3/uL (0-1.3); Monocytes % (auto) 2.8 % (0.0-12.0); Neutrophils # (auto) 11.2 10 ^3/uL (1.6-8.6); Neutrophils % (auto) 89.1 % (37.0-80.0); Red Blood Cells 3.48 10^6/uL (4.5-5.90); Red Cell Distribution Width 15.6 % (11.8-14.3); White Blood Cell 12.6 10^3/uL (4.4-10.8)
[2024-02-29 07:16] LABS: Urine Blood Negative /uL (Negative); Urine Clarity Clear (Clear); Urine Color Yellow (Yellow); Urine Hyaline Cast FEW /lpf (0 - 2); Urine Mucus FEW (None Seen); Urine Protein, UAD TRACE (Negative); Urine Specific Gravity 1.031 (1.001-1.035); Urine Urobilinogen Normal (Negative); Urine WBC 1 /hpf (0 - 3); Urine pH 5.5 (5.0-9.0)
[2024-02-29 07:29] LABS: INR 1.24 (0.9-1.15); Partial Thromboplastin Time 30.1 SEC (24.5-34.5); Prothrombin Time 12.9 sec (9.3-11.8)
[2024-02-29 07:30] LABS: Albumin 2.9 g/dL (3.2-4.8); Alkaline Phosphatase 55 U/L (46-116); Anion Gap 4 (5-15); Aspartate Aminotransferase 12 U/L (13-40); BUN/Creatinine Ratio 15.2 (10.0-20.0); Blood Urea Nitrogen 16 mg/dL (9-23); Calcium 8.2 mg/dL (8.7-10.4); Carbon Dioxide 29 mmol/L (20-30); Chloride 105 mmol/L (98-107); Glucose 127 mg/dL (74-106); Magnesium 1.8 mg/dL (1.6-2.6); Potassium 4.4 mmol/L (3.5-5.1); Sodium 138 mmol/L (136-145)
[2024-02-29] MEDS: SODIUM CHLORIDE 0.9% 1,000 ML IV ONE (07:30)
[2024-02-29 07:31] LABS: Bilirubin, Total 0.8 mg/dL (0.2-1.0); Total Protein 6.2 g/dL (5.7-8.2)
[2024-02-29 07:34] LABS: Alanine Aminotransferase < 9 U/L (7-40)
[2024-02-29] MEDS: AZITHROMYCIN 500MG/ 250ML 250 ML IV ONE (08:45)
[2024-02-29] MEDS: cefTRIAXone 1GM/50ML D5W 50 ML IV ONE (09:07)
[2024-02-29] MEDS: SODIUM CHLORIDE 0.9% 500 ML IV ONE (12:21)
[2024-02-29] MEDS ORDERED: DEXTROSE (50%) 50ML SYRG IV PRN (12:30)
[2024-02-29] MEDS ORDERED: ALBUTEROL SULF 2.5 MG/0.5ML(0.5%) NEB SOLN NEB PRN (12:30)
[2024-02-29] MEDS: SODIUM CHLORIDE 0.9% 1,000 ML IV SCH (12:30)
[2024-02-29] MEDS ORDERED: MORPHINE SULFATE INJ 2 MG/ml SYRG IV PRN (12:30)
[2024-02-29] MEDS ORDERED: NITROGLYCERIN 0.4 MG SL TAB SL PRN (12:30)
[2024-02-29] MEDS: ALBUTEROL SULF 2.5 MG/0.5ML(0.5%) NEB SOLN NEB SCH (13:40)
[2024-02-29] MEDS: IPRATROPIUM BROM 0.5 MG/2.5ML INH SOL NEB SCH (13:40)
[2024-02-29] MEDS: InsuLIN REG 1unit/0.01ml Soln (100units/ml) SC SCH (17:00)
[2024-02-29] MEDS: ACCU-CHEK COMFORT CURVE STRIP VI SCH (17:00)
[2024-02-29 17:15] LABS: COVID19 ANTIGEN SOFIA FIA NEGATIVE (NEGATIVE); Rapid Influenza A Negative (Negative)
[2024-02-29 17:17] LABS: Rapid Influenza B Positive (Negative)
[2024-02-29] MEDS: ACETAMINOPHEN 325 MG TAB PO PRN (20:18)
[2024-03-01] VITALS (10 sets, daily range): BP systolic 119; BP diastolic 63; PULSE 57–87; RESP 16–18; O2SAT 95–100
[2024-03-01 06:12] LABS: Eosinophils # (auto) 0 10 ^3/uL (0-0.8); Eosinophils % (auto) 0.3 % (0.0-7.0); Lymphocytes # (auto) 1.3 10 ^3/uL (0.4-5.4); Monocytes # (auto) 0.4 10 ^3/uL (0-1.3); Neutrophils # (auto) 6.7 10 ^3/uL (1.6-8.6)
[2024-03-01 06:16] LABS: Basophils # (auto) 0.1 10 ^3/uL (0-0.2); Basophils % (auto) 0.8 % (0.0-2.0); Hematocrit 35.2 % (41.0-53.0); Hemoglobin 12.3 g/dL (13.5-17.5); Mean Corpuscular Hemoglobin 36.9 pg (28.0-32.0); Mean Corpuscular Hgb Conc. 34.9 g/dL (32.0-36.0); Mean Corpuscular Volume 105.6 fL (80.0-100.0); Monocytes % (auto) 4.4 % (0.0-12.0); Neutrophils % (auto) 79.5 % (37.0-80.0); Nucleated Red Blood Cells % 0.1 %; Red Blood Cells 3.34 10^6/uL (4.5-5.90); White Blood Cell 8.5 10^3/uL (4.4-10.8)
[2024-03-01] MEDS: LEVOTHYROXINE SODIUM 88 MCG TAB PO SCH (06:53)
[2024-03-01] MEDS: cefTRIAXone 1GM/50ML D5W 50 ML IV SCH (09:18)
[2024-03-01 09:20] LABS: Albumin 2.7 g/dL (3.2-4.8); Alkaline Phosphatase 54 U/L (46-116); Anion Gap 2 (5-15); Aspartate Aminotransferase 10 U/L (13-40); Blood Urea Nitrogen 10 mg/dL (9-23); Calcium 8.5 mg/dL (8.7-10.4); Carbon Dioxide 31 mmol/L (20-30); Chloride 106 mmol/L (98-107); Glucose 166 mg/dL (74-106); Potassium 4.2 mmol/L (3.5-5.1); Sodium 139 mmol/L (136-145)
[2024-03-01 09:21] LABS: Alanine Aminotransferase < 9 U/L (7-40); Bilirubin, Total 0.5 mg/dL (0.2-1.0); Total Protein 5.9 g/dL (5.7-8.2)
[2024-03-01] MEDS: VITAMIN C PO SCH (10:00)
[2024-03-01] MEDS: ROSE HIPS PO SCH (10:00)
[2024-03-01] MEDS: AZITHROMYCIN 500MG/ 250ML 250 ML IV SCH (10:03)
[2024-03-01] MEDS: IOHEXOL 350 MG/ML 100ML IJ ONE (13:59)
[2024-03-01] MEDS: OSELTAMIVIR 75 MG CAP PO ONE (14:09)
[2024-03-01] MEDS: DOXYCYCLINE 100MG/250ML 250 ML IV SCH (14:09)
[2024-03-01] MEDS ORDERED: OSELTAMIVIR 75 MG CAP PO SCH (22:00)
[2024-03-02] MEDS ORDERED: OSELTAMIVIR 75 MG CAP PO SCH (10:00)
== END 2024-03-01 16:57 | disposition left against medical advice (07) | DRG 193 ==
LOC: ER 04:58 → TELE 12:26
PROVIDERS: ADMIT Internal Medicine Pulmonary Disease; ATTEND Internal Medicine Pulmonary Disease
DX: J10.01 Influenza due to other identified influenza virus with the same other identified influenza virus pneumonia (principal); J96.01 Acute respiratory failure with hypoxia; J44.0 Chronic obstructive pulmonary disease with (acute) lower respiratory infection; E03.9 Hypothyroidism, unspecified; E11.9 Type 2 diabetes mellitus without complications; D75.89 Other specified diseases of blood and blood-forming organs; Z53.29 Procedure and treatment not carried out because of patient's decision for other reasons; M10.9 Gout, unspecified; Q90.9 Down syndrome, unspecified; Z82.49 Family history of ischemic heart disease and other diseases of the circulatory system; D72.829 Elevated white blood cell count, unspecified
CPT/HCPCS: 36415; 71045; 71275; 80053; 81001; 82962; 83036; 83605; 83735; 83880; 84443; 84484; 85025; 85610; 85730; 86850; 86900; 86901; 87040; 87426; 87804; 93005; 93970; 94003; 94640; 96361; 96365; 96366; 96368; G0378; J1815; J3490

== ENCOUNTER 2024-05-22 15:40 | Inpatient (IN) | payer MEDICARE ==
[~2024-05-22] VITALS: Ht 162.6 cm; Wt 47.7 kg
[2024-05-22 17:58] VITALS: BP 101/58; PULSE 69; RESP 18; TEMP 98.4; O2SAT 98
[2024-05-22] MEDS ORDERED: NITROGLYCERIN 0.4 MG SL TAB SL PRN (18:15)
[2024-05-22] MEDS ORDERED: MORPHINE SULFATE INJ 2 MG/ml SYRG IV PRN (18:15)
[2024-05-22] MEDS: SODIUM CHLORIDE 0.9% 1,000 ML IV SCH (18:15)
[2024-05-22 18:22] VITALS: BP 101/58; PULSE 69; RESP 18; TEMP 98.4; O2SAT 98
[2024-05-22 19:12] LABS: Basophils # (auto) 0 10 ^3/uL (0-0.2); Basophils % (auto) 0.6 % (0.0-2.0); Eosinophils # (auto) 0 10 ^3/uL (0-0.8); Eosinophils % (auto) 0.6 % (0.0-7.0); Hemoglobin 13.7 g/dL (13.5-17.5); Lymphocytes # (auto) 1.9 10 ^3/uL (0.4-5.4); Mean Corpuscular Hemoglobin 35.5 pg (28.0-32.0); Monocytes # (auto) 0.3 10 ^3/uL (0-1.3); Red Blood Cells 3.87 10^6/uL (4.5-5.90)
[2024-05-22 19:13] LABS: Hematocrit 41.4 % (41.0-53.0); Lymphocytes % (auto) 33.9 % (10.0-50.0); Mean Corpuscular Hgb Conc. 33.2 g/dL (32.0-36.0); Mean Corpuscular Volume 106.8 fL (80.0-100.0); Monocytes % (auto) 5.2 % (0.0-12.0); Neutrophils # (auto) 3.3 10 ^3/uL (1.6-8.6); Neutrophils % (auto) 59.7 % (37.0-80.0); Nucleated Red Blood Cells % 0.1 %; Platelet Count (auto) 180 10^3/uL (140-450); Red Cell Distribution Width 17.8 % (11.8-14.3); White Blood Cell 5.5 10^3/uL (4.4-10.8)
[2024-05-22] MEDS: AZITHROMYCIN 500MG/ 250ML 250 ML IV ONE (19:15)
[2024-05-22] MEDS: cefTRIAXone 1GM/50ML D5W 50 ML IV ONE (19:15)
[2024-05-22 19:44] LABS: Alanine Aminotransferase 11 U/L (7-40); Albumin 3.2 g/dL (3.2-4.8); Alkaline Phosphatase 66 U/L (46-116); Anion Gap 3 (5-15); Aspartate Aminotransferase 12 U/L (13-40); BUN/Creatinine Ratio 14.2 (10.0-20.0); Blood Urea Nitrogen 19 mg/dL (9-23); Calcium 8.9 mg/dL (8.7-10.4); Carbon Dioxide 31 mmol/L (20-31); Chloride 104 mmol/L (98-107); Glucose 136 mg/dL (74-106); Magnesium 2.4 mg/dL (1.6-2.6); Potassium 4.3 mmol/L (3.5-5.1); Sodium 138 mmol/L (136-145)
[2024-05-22 19:45] LABS: Bilirubin, Total 0.6 mg/dL (0.2-1.0); Phosphorus 3.1 mg/dL (2.4-5.1); Total Protein 6.8 g/dL (5.7-8.2)
[2024-05-22 20:00] VITALS: PULSE 61; RESP 18; O2SAT 93
[2024-05-22 20:17] LABS: Urine Bacteria None Seen /hpf (None Seen)
[2024-05-22 20:33] LABS: Urine Blood Negative /uL (Negative); Urine Clarity Clear (Clear); Urine Color Light-Yellow (Yellow); Urine Protein, UAD Negative (Negative); Urine Specific Gravity 1.023 (1.001-1.035); Urine Urobilinogen Normal (Negative); Urine WBC <1 /hpf (0 - 3)
[2024-05-22 21:00] VITALS: BP 101/45; PULSE 61; RESP 18; TEMP 98.2; O2SAT 93
[2024-05-22 22:42] VITALS: PULSE 62; RESP 16; O2SAT 94
[2024-05-22] MEDS: ALBUTEROL SULF 2.5 MG/0.5ML(0.5%) NEB SOLN NEB SCH (22:42)
[2024-05-22 22:50] VITALS: PULSE 59; RESP 18; O2SAT 99
[2024-05-23] VITALS (18 sets, daily range): BP systolic 81–116; BP diastolic 38–58; PULSE 54–73; RESP 14–18; TEMP 98–98.4; O2SAT 90–100
[2024-05-23] MEDS ORDERED: ACETAMINOPHEN 325 MG TAB PO PRN (08:30)
[2024-05-23] MEDS: cefTRIAXone 1GM/50ML D5W 50 ML IV SCH (08:40)
[2024-05-23] MEDS: AZITHROMYCIN 500MG/ 250ML 250 ML IV SCH (09:42)
[2024-05-23] MEDS: IPRATROPIUM BROM 0.5 MG/2.5ML INH SOL NEB SCH (11:30)
[2024-05-23] MEDS: SODIUM CHLORIDE 0.9% 2,000 ML IV ONE (16:15)
[2024-05-23] MEDS: PIPERACILLIN-TAZOB 3.375GM 100 ML IV SCH (22:03)
[2024-05-24] VITALS (18 sets, daily range): BP systolic 86–122; BP diastolic 38–67; PULSE 34–84; RESP 15–20; TEMP 97.7–98.3; O2SAT 94–100
[2024-05-24] MEDS: MIDODRINE HCL 10 MG TAB PO SCH (08:23)
[2024-05-25] VITALS (10 sets, daily range): BP systolic 105–113; BP diastolic 46–56; PULSE 28–48; RESP 16–20; TEMP 97.5–98.1; O2SAT 95–100
[2024-05-25] MEDS: LEVOTHYROXINE SODIUM 50 MCG TAB PO SCH (05:51)
[2024-05-25 06:27] LABS: Anion Gap 4 (5-15); Carbon Dioxide 31 mmol/L (20-31); Chloride 105 mmol/L (98-107); Potassium 4.6 mmol/L (3.5-5.1); Sodium 140 mmol/L (136-145)
[2024-05-25 06:28] LABS: Calcium 8.9 mg/dL (8.7-10.4)
[2024-05-25 06:33] LABS: Glucose 92 mg/dL (74-106)
[2024-05-25 06:34] LABS: BUN/Creatinine Ratio 9.8 (10.0-20.0); Blood Urea Nitrogen 13 mg/dL (9-23); Magnesium 2.4 mg/dL (1.6-2.6)
[2024-05-25] MEDS ORDERED: DOXY-286 PO (09:46)
[2024-05-25] MEDS ORDERED: MID10T PO (09:46)
== END 2024-05-25 12:10 | disposition home or self-care (01) | DRG 190 ==
LOC: OVERFLOW 17:31 → CENTRAL 17:31 → UNDOADMIN 17:31 → EAST 20:00
PROVIDERS: ADMIT Internal Medicine Pulmonary Disease; ATTEND Internal Medicine
DX: J44.1 Chronic obstructive pulmonary disease with (acute) exacerbation (principal); J69.0 Pneumonitis due to inhalation of food and vomit; J98.11 Atelectasis; R64 Cachexia; Z68.1 Body mass index [BMI] 19.9 or less, adult; Q90.9 Down syndrome, unspecified; E11.9 Type 2 diabetes mellitus without complications; F79 Unspecified intellectual disabilities; M10.9 Gout, unspecified; I95.89 Other hypotension; Z82.5 Family history of asthma and other chronic lower respiratory diseases; Z82.49 Family history of ischemic heart disease and other diseases of the circulatory system
CPT/HCPCS: 36415; 71045; 71250; 80048; 80053; 81001; 83735; 84100; 84439; 84443; 85025; 87040; 87070; 87077; 87186; 87205; 92610; 93005; 94640; 97110; 97116; 97163; 97530; G0378; J2543